=== PATIENT | female | born 1945 | race Caucasian/White ===

== ENCOUNTER 2018-08-29 13:13 | Inpatient (IN) ==
[2018-08-29] MEDS ORDERED: ONDANSETRON INJ 2 MG/ML 2 ML VIAL IV STA ×2 (14:11→15:54)
[2018-08-29] MEDS ORDERED: MoRPHine SULFATE 4 MG/ML 1 ML CARP\\VIAL IV STA ×2 (14:11→15:54)
[2018-08-29 14:50] LABS: Albumin Level 3.8 gm/dl (3.4-5.0); BUN Creatinine Ratio 10.1 (10-20); Calcium 10.3 mg/dl (8.5-10.1); Creatinine Clr Calc Pharmacy 30.3 ml/min; Est GFR (African American) 43.8; Est GFR (Non-African American) 37.8; Potassium 3.2 mmol/L (3.5-5.1)
[2018-08-29 14:53] LABS: Albumin Globulin Ratio 0.9 (0.9-2); Bilirubin,Total 0.7 mg/dl (0.2-1); Globulin 4.4 gm/dl (2.5-4.0); Total Protein 8.2 gm/dl (6.4-8.2)
[2018-08-29 14:58] LABS: Basophils # (auto) 0.03 K/uL (0-0.2); Basophils % (auto) 0.3 %; Eosinophils # (auto) 0.05 K/uL (0-0.5); Eosinophils % (auto) 0.6 %; Hematocrit (blood only) 31.4 % (37-47); Hemoglobin 11.4 g/dL (12.0-16.0); Immature Granulocytes # (auto) 0.03 K/uL (0.00-0.02); Immature Granulocytes % (auto) 0.3 %; Lymphocytes # (auto) 1.26 K/uL (1.2-3.4); Lymphocytes % (auto) 14.5 %; Mean Corpuscular Hgb Conc 36.3 g/dL (32-36); Mean Corpuscular Volume 98.4 fL (80-100); Mean Platelet Volume 9.2 fL (7.4-10.4); Monocytes # (auto) 0.27 K/uL (0.11-0.59); Monocytes % (auto) 3.1 %; Neutrophils # (auto) 7.02 K/uL (1.4-6.5); Neutrophils % (auto) 81.2 %; Platelet Count 225 K/uL (130-400); RDW Coefficient of Variation 13.6 % (11.5-14.5); RDW Standard Deviation 48.3 fL (36.4-46.3); Red Blood Count 3.19 M/uL (4.2-5.4); White Blood Count 8.66 K/uL (4.8-10.8)
--- NOTE | 2018-08-29 14:59 | CT Scan Report ---
CT SCAN OF THE ABDOMEN AND PELVIS WITHOUT IV CONTRAST CLINICAL HISTORY: Generalized abdominal pain. COMPARISON STUDY: Abdominal CT dated 05/09/2015 10/12/2011. TECHNIQUE: CT scan of the abdomen and pelvis is performed from the lung bases to the proximal femora. Images are reviewed in the axial, sagittal, and coronal planes. IV contrast was not administered for this examination as per the referring clinician. Note that the examination is suboptimal without ora l and IV contrast. A dose lowering technique was utilized adhering to the principles of ALARA. CT DOSE: 257.69 mGy.cm FINDINGS: Lung bases: The heart is normal in size and without pericardial effusion. The lung bases are clear no ting bibasilar scarring/atelectasis. The left breast is surgically absent. There is a tiny hiatal her collin. Liver: The unenhanced liver is normal in size, contour, and attenuation. There is no intrahepatic lorna iary ductal dilatation. Gallbladder: There are numerous calcified gallstones, with no CT evidence of acute cholecystitis. Spleen: Normal in size and attenuation. Pancreas: The unenhanced pancreas is atrophic and grossly unremarkable. Adrenal glands: Unremarkable. Kidneys: The unenhanced kidneys are atrophic and without hydronephrosis. There are no renal calculi i dentified. There is no evidence of contour deforming renal mass lesion. Abdominal vasculature: The abdominal aorta is normal in course and caliber noting moderate atheroscle rotic calcification. Bowel: The small bowel loops are distended and fluid-filled measuring up to 3.3 cm in diameter. A tra nsition point is identified in the right lower quadrant involving the distal ileum on image #264. The distal small bowel and colon are decompressed, and the appearance is consistent with a small bowel o bstruction. No pneumatosis intestinalis or portal venous gas is seen. No focally thick walled bowel l oops are identified. There is mild colonic diverticulosis without CT evidence of acute diverticulitis . The appendix is not visualized. Peritoneum: There is no intraperitoneal free air or abdominal ascites. There is a small fat-containin g umbilical hernia. Lymphadenopathy: None. Pelvic viscera: Evaluation of the pelvis is degraded by streak artifact from a right hip arthroplasty . The bladder is decompressed and not well evaluated. The uterus is surgically absent. No adnexal les ion is seen. Skeletal structures: The skeletal structures are osteopenic. There is mild to moderate lumbosacral sp ondylosis and scoliosis. There are numerous sclerotic lesions scattered throughout the visualized bon y structures. [employer] Derrick Operator lesions are seen within the bodies of T10, T11, T12, and L2 as well as t he right anterior ilium and the left ischium. A right hip arthroplasty is in place. IMPRESSION: 1. Findings are consistent with a small bowel obstruction, with a transition point identified involvi ng the distal ileum in the right lower quadrant. This is likely on the basis of adhesions. 2. No intraperitoneal free air is seen. No pneumatosis intestinalis, portal venous gas, or focally th ick walled bowel loops are identified. 3. Cholelithiasis. 4. Numerous indeterminant sclerotic osseous foci are again noted and have been present dating back to 2011. 5. Additional findings as above. Electronically signed by: Eulogio Jennings M.D. 08/29/2018 2:58 PM
[2018-08-29] MEDS ORDERED: SODIUM CHLORIDE 0.9% 500 ML IV ONE (15:33)
[2018-08-29 15:55] LABS: Appearance Urine Turbid (Clear); Bacteria Urine Automated Negative (Negative); Color Urine Dark Yellow; Epithelial Cell Urine Auto >30 /lpf (0-5); Glucose Urine UA Negative (Negative); Ketones Urine 1+ (Negative); Leukocyte Esterase Urine 1+ (Negative); Nitrite Urine Negative (Negative); Protein Urine 2+ (Negative); Specific Gravity Urine 1.027 (1.000-1.030); Urobilinogen Urine Negative (Negative); WBC Urine Automated >30 /hpf (0-5)
[2018-08-29 16:12] LABS: Bilirubin Urine Negative (Negative); Ictotest Urine Negative (Negative)
[2018-08-29 16:21] LABS: Cast Urine Automated >30 /lpf (0-5); Mucus Urine Present (None Prsent)
--- NOTE | 2018-08-29 16:42 | History & Physical Report ---
Date of Service August 29, 2018 Assessment & Plan (1) Small bowel obstruction: Small bowel obstruction seen on CT, likely secondary to adhesions with history of abdominal surgery in the past. Bilious vomiting and significant pain at this point in the ER. She is received 2 doses of morphine with some relief. NG tube to be placed. General surgery consulted. Continue maintenance IV fluids while patient is n.p.o. Dilaudid as needed pain. Zofran/ Phenergan as needed nausea. (2) Acute maxillary sinusitis: She is currently received 6 days of Augmentin and reports no symptoms at this time. We will not pursue further antibiotic therapy. (3) Metastatic breast cancer: Takes twice daily medication for metastatic breast cancer. No IV option is available. Continue to hold p.o. meds until patient is well enough to clamp NG tube and give this to her. (4) C. difficile colitis: History of recurrent C. difficile colitis, patient states diarrhea has been present since starting new chemo medication in April. Will recheck C. difficile at this time in setting of recent antibiotic use. (5) Hypokalemia: Replace in fluids given for maintenance of hydration while n.p.o. recheck in a.m. (6) DVT prophylaxis: Lovenox Full code Disposition-NG tube placed, continue supportive care. Expect patient to return home when medically stable Isabel Wise DO [facility] History of Present Illness Chief Complaint: Abdominal pain Primary Care Provider: Harleen Carlos 73-year-old female with metastatic breast cancer to bone since 2011 presents with severe abdominal pain and vomiting in the last 24 hours. The patient states she last had some toast this morning and she has had several episodes of diarrhea. She notes some loose stools frequently with her cancer medication, Verzenio, which has been started since April. She recently received a shot of Xgeva earlier today at the hematology office. She reports this has not have an adverse effect on her in the past. She has a history of total abdominal hysterectomy in the past. She denies any history of SBO. She denies any blood per rectum. She reports being in the emergency room last week for a sinus infection, of which all symptoms have resolved. Augmentin was taken for approximately 6 days. She is currently in significant pain doubled over and in significant distress in the ER. Family is at bedside. She will be receiving an NG tube. Allergies Allergy/AdvReac Type Severity Reaction Status Date / Time codeine AdvReac Unknown HEADACHE Verified 08/23/18 00:03 Home Medications Home Medications Medication Instructions Recorded Confirmed Type amoxicillin-pot clavulanate 1 tab PO BID #20 tab 08/23/18 08/29/18 Rx [Augmentin] aspirin 81 mg PO DAILY 08/23/18 08/29/18 History hydrocodone-homatropine 5 ml PO Q6H PRN #100 ml 08/23/18 08/29/18 Rx [Hydrocodone Compound] lactobacillus combination no.4 3,000 mmu cells PO DAILY 08/23/18 08/29/18 History [Probiotic] pyridoxine (vitamin B6) [Vitamin 1 tab PO DAILY 08/23/18 08/29/18 History B-6] Calcium 600 + D(3) 1 tab PO BID 08/29/18 08/29/18 History abemaciclib [Verzenio] 200 mg PO BID 08/29/18 08/29/18 History denosumab [Xgeva] 120 mg SUBCUT Q90D 08/29/18 08/29/18 History ondansetron HCl [Zofran] 8 mg PO TID PRN 08/29/18 08/29/18 History trazodone 50 mg PO HS PRN 08/29/18 08/29/18 History Past Med/Surg History Medical History Acute maxillary sinusitis (Acute) Acute sphenoidal sinusitis (Acute) Acute ethmoidal sinusitis (Acute) Metastatic breast cancer (Acute) C. difficile colitis (Chronic) Diverticulitis (Chronic) Abdominal pain (Acute) Ileitis (Acute) Partial small bowel obstruction (Acute) SBO (small bowel obstruction) (Acute) Urinary tract infection (Acute) Breast cancer Surgical History History of hysterectomy (Resolved) History of right hip replacement H/O mastectomy Family History Other No significant family history Social History marital status: Current Living Situation: Family current occupational status: retired Feels Safe at Home: Yes Smoking Status: Never smoker Review of Systems At least ten systems were reviewed and negative except as indicated in HPI above. Physical Exam 2 Vital Signs (Past 24 Hours): Last Vital Signs Temp 36.6 C 08/29/18 13:18 Pulse 76 08/29/18 14:29 Resp 17 08/29/18 14:29 BP 175/79 H 08/29/18 14:29 Pulse Ox 100 08/29/18 14:29 CONSTITUTIONAL: WNWD, vitals as above, in acute distress, doubled over, moaning in pain, guarding and grabbing abdomen EYES: normal conjuctivae, no scleral icterus ENT: Mucous membranes dry RESPIRATORY: clear to auscultation bilaterally, no crackles, rales or wheezes, normal respiratory effort CARDIOVASCULAR: regular rate and rhythm, S1 and 2 heard without murmurs, gallops or rubs, no peripheral edema GASTROINTESTINAL: Hypoactive bowel sounds, soft, nondistended, diffuse tenderness, positive guarding, negative CVA tenderness. MUSCULOSKELETAL: head is normocephalic and atraumatic, strength is generally intact throughout. SKIN: warm and dry NEUROLOGIC: Difficult to completely assess as patient is in pain. CN 2-12 grossly intact, normal cognition, normal speech PSYCHIATRIC: alert cooperative and oriented to person, place and time. Results & Data Laboratory Results Short CBC 08/29/18 Range/Units 14:25 WBC 8.66 (4.8-10.8) K/uL Hgb 11.4 L (12.0-16.0) g/dL Hct 31.4 L (37-47) % Plt Count 225 (130-400) K/uL BMP 08/29/18 14:25 Sodium 139 Potassium 3.2 L Chloride 104 Carbon Dioxide 20 L BUN 14 Creatinine 1.39 H Glucose 131 H Calcium 10.3 H Liver Function 08/29/18 Range/Units 14:25 Total Bilirubin 0.7 (0.2-1) mg/dl AST 22 (15-37) U/L ALT 29 (12-78) U/L Alkaline Phosphatase 65 (45-117) U/L Albumin 3.8 (3.4-5.0) gm/dl Urine 08/29/18 Range/Units 15:30 Urine Color Dark Yellow Urine Appearance Turbid H (Clear) Urine pH 5.0 (4.5-7.5) Ur Specific [place] 1.027 (1.000-1.030) Urine Protein 2+ H (Negative) Urine Glucose (UA) Negative (Negative) Diagnostic Findings CT A/P: FINDINGS: Lung bases: The heart is normal in size and without pericardial effusion. The lung bases are clear noting bibasilar scarring/atelectasis. The left breast is surgically absent. There is a tiny hiatal hernia. Liver: The unenhanced liver is normal in size, contour, and attenuation. There is no intrahepatic biliary ductal dilatation. Gallbladder: There are numerous calcified gallstones, with no CT evidence of acute cholecystitis. Spleen: Normal in size and attenuation. Pancreas: The unenhanced pancreas is atrophic and grossly unremarkable. Adrenal glands: Unremarkable. Kidneys: The unenhanced kidneys are atrophic and without hydronephrosis. There are no renal calculi identified. There is no evidence of contour deforming renal mass lesion. Abdominal vasculature: The abdominal aorta is normal in course and caliber noting moderate atherosclerotic calcification. Bowel: The small bowel loops are distended and fluid-filled measuring up to 3.3 cm in diameter. A transition point is identified in the right lower quadrant involving the distal ileum on image #264. The distal small bowel and colon are decompressed, and the appearance is consistent with a small bowel obstruction. No pneumatosis intestinalis or portal venous gas is seen. No focally thick walled bowel loops are identified. There is mild colonic diverticulosis without CT evidence of acute diverticulitis. The appendix is not visualized. Peritoneum: There is no intraperitoneal free air or abdominal ascites. There is a small fat-containing umbilical hernia. Lymphadenopathy: None. Pelvic viscera: Evaluation of the pelvis is degraded by streak artifact from a right hip arthroplasty. The bladder is decompressed and not well evaluated. The uterus is surgically absent. No adnexal lesion is seen. Skeletal structures: The skeletal structures are osteopenic. There is mild to moderate lumbosacral spondylosis and scoliosis. There are numerous sclerotic lesions scattered throughout the visualized bony structures. Booth Cashier lesions are seen within the bodies of T10, T11, T12, and L2 as well as the right anterior ilium and the left ischium. A right hip arthroplasty is in place. IMPRESSION: 1. Findings are consistent with a small bowel obstruction, with a transition point identified involving the distal ileum in the right lower quadrant. This is likely on the basis of adhesions. 2. No intraperitoneal free air is seen. No pneumatosis intestinalis, portal venous gas, or focally thick walled bowel loops are identified. 3. Cholelithiasis. 4. Numerous indeterminant sclerotic osseous foci are again noted and have been present dating back to 2011. 5. Additional findings as above. Medications Administered Discontinued Medications Sodium Chloride (Nss) 500 mls @ 999 mls/hr IV .Q31M ONE Stop: 08/29/18 16:03 Last Admin: 08/29/18 15:58 Dose: 999 mls/hr Morphine Sulfate (Morphine Sulfate) 4 mg IV NOW STA Stop: 08/29/18 14:12 Last Admin: 08/29/18 14:26 Dose: 4 mg Morphine Sulfate (Morphine Sulfate) 4 mg IV NOW STA Stop: 08/29/18 15:55 Last Admin: 08/29/18 16:03 Dose: 4 mg Ondansetron HCl (Zofran) 4 mg IV NOW STA Stop: 08/29/18 14:12 Last Admin: 08/29/18 14:26 Dose: 4 mg Ondansetron HCl (Zofran) 4 mg IV NOW STA Stop: 08/29/18 15:55 Last Admin: 08/29/18 16:03 Dose: 4 mg Code Status & VTE Plan Code Status Full code as discussed with patient and family on admission VTE Prophylaxis Plan VTE Prophylaxis will be ordered: Yes Critical Care Time Critical Care Time: No _ (1) Acute maxillary sinusitis Recurrence: non-recurrent Qualified Code(s): J01.00 - Acute maxillary sinusitis, unspecified
--- NOTE | 2018-08-29 17:58 | Surgery Consultation ---
Date of Consultation August 29, 2018 Assessment & Plan (1) Small bowel obstruction: pt is a 73 year old female who presents to Er with one day history abdominal pain with nausea and vomiting, CT scan dx SBO, I agree with hospitalist admitted pt to hospital with conservative treatment first, NPO, IV fluid. control pain, NG tube, correct low K, repeat labs in am, D /W pt and her family members possible surgery treatment if conservative treatment fail. they understood, I answered all questions, Thanks, will F/U History of Present Illness History of Present Illness Chief Complaint: Abdominal pain Primary Care Provider: Harleen Gonzalez 73-year-old female with metastatic breast cancer to bone since 2011 presents with severe abdominal pain and vomiting in the last 24 hours. The patient states she last had some toast this morning and she has had several episodes of diarrhea. She notes some loose stools frequently with her cancer medication, Verzenio, which has been started since April. She recently received a shot of Xgeva earlier today at the hematology office. She reports this has not have an adverse effect on her in the past. She has a history of total abdominal hysterectomy in the past. She denies any history of SBO. She denies any blood per rectum. She reports being in the emergency room last week for a sinus infection, of which all symptoms have resolved. Augmentin was taken for approximately 6 days. She is currently in significant pain doubled over and in significant distress in the ER. Family is at bedside. She will be receiving an NG tube. I got a call for consult SBO, I reviewed pt's H/P with pt, I agree with above pt 's history. Allergies Allergy/AdvReac Type Severity Reaction Status Date / Time codeine AdvReac Unknown HEADACHE Verified 08/23/18 00:03 Home Medications Home Medications Medication Instructions Recorded Confirmed Type amoxicillin-pot clavulanate 1 tab PO BID #20 tab 08/23/18 08/29/18 Rx [Augmentin] aspirin 81 mg PO DAILY 08/23/18 08/29/18 History hydrocodone-homatropine 5 ml PO Q6H PRN #100 ml 08/23/18 08/29/18 Rx [Hydrocodone Compound] lactobacillus combination no.4 3,000 mmu cells PO DAILY 08/23/18 08/29/18 History [Probiotic] pyridoxine (vitamin B6) [Vitamin 1 tab PO DAILY 08/23/18 08/29/18 History B-6] Calcium 600 + D(3) 1 tab PO BID 08/29/18 08/29/18 History abemaciclib [Verzenio] 200 mg PO BID 08/29/18 08/29/18 History denosumab [Xgeva] 120 mg SUBCUT Q90D 08/29/18 08/29/18 History ondansetron HCl [Zofran] 8 mg PO TID PRN 08/29/18 08/29/18 History trazodone 50 mg PO HS PRN 08/29/18 08/29/18 History Patient History Medical History Acute maxillary sinusitis (Acute) Acute sphenoidal sinusitis (Acute) Acute ethmoidal sinusitis (Acute) Metastatic breast cancer (Acute) C. difficile colitis (Chronic) Diverticulitis (Chronic) Abdominal pain (Acute) Ileitis (Acute) Partial small bowel obstruction (Acute) SBO (small bowel obstruction) (Acute) Urinary tract infection (Acute) Breast cancer Surgical History History of hysterectomy (Resolved) History of right hip replacement H/O mastectomy Family History Other No significant family history Social History marital status: Current Living Situation: Family current occupational status: retired Feels Safe at Home: Yes Smoking Status: Never smoker Review of Systems Constitutional: as per Subjective / HPI Ear, Nose, Mouth, Throat: as per Subjective / HPI Respiratory: as per Subjective / HPI Cardiovascular: as per Subjective / HPI Gastrointestinal: + nausea and + vomiting Genitourinary (Female): as per Subjective / HPI metastatic breast cancer to bone, C-diff colitis Musculoskeletal: as per Subjective / HPI Neurologic: as per Subjective / HPI Psychiatric: as per Subjective / HPI Endocrine: as per Subjective / HPI Hematologic / Lymphatic: as per Subjective / HPI Physical Exam 2 Vital Signs (Past 24 Hours): Last Vital Signs Temp 36.6 C 08/29/18 13:18 Pulse 83 08/29/18 16:00 Resp 20 01/02/19 16:00 BP 148/67 H 08/29/18 16:00 Pulse Ox 95 08/29/18 16:00 Constitutional: WD/WN, vitals as above + ill appearing, + thin and + cachectic Neck: trachea midline, no thyromegaly Respiratory: normal respiratory effort, lungs clear to auscultation Cardiovascular: RRR, no murmur, no edema Rate/Rhythm: regular rate and regular rhythm Gastrointestinal (Abdomen): Inspection/Auscultation: + abdominal surgical scar Percussion/Palpation: + abdomen tender and abdomen soft slightly distend, some tenderness jennifer-umbilical area, no rebound pain, BS + Musculoskeletal: Spine: + lumbar spinal tenderness Extremities: extremities normal to inspection Neurologic: awake Psychiatric: Orientation: alert and oriented x 3 Results & Data Laboratory Results Abnormal lab results 08/29/18 08/29/18 08/29/18 Range/Units 14:25 14:25 15:30 RBC 3.19 L (4.2-5.4) M/uL Hgb 11.4 L (12.0-16.0) g/dL Hct 31.4 L (37-47) % MCH 35.7 H (25-34) pg MCHC 36.3 H (32-36) g/dL RDW Std Deviation 48.3 H (36.4-46.3) fL Immature Gran # (Auto) 0.03 H (0.00-0.02) K/uL Neut # (Auto) 7.02 H (1.4-6.5) K/uL Potassium 3.2 L (3.5-5.1) mmol/L Carbon Dioxide 20 L (21-32) mmol/L Anion Gap 14.0 H (3-11) Creatinine 1.39 H (0.6-1.2) mg/dl Glucose 131 H (70-99) mg/dl Calcium 10.3 H (8.5-10.1) mg/dl Globulin 4.4 H (2.5-4.0) gm/dl Urine Appearance Turbid H (Clear) Urine Protein 2+ H (Negative) Urine Ketones 1+ H (Negative) Urine Blood Trace H (Negative) Ur Leukocyte Esterase 1+ H (Negative) Urine WBC (Auto) >30 H (0-5) /hpf U Hyaline Cast (Auto) >30 H (0-5) /lpf U Epithel Cells (Auto) >30 H (0-5) /lpf Urine Mucus Present H (None Prsent) Diagnostic Findings CT SCAN OF THE ABDOMEN AND PELVIS WITHOUT IV CONTRAST CLINICAL HISTORY: Generalized abdominal pain. COMPARISON STUDY: Abdominal CT dated 05/09/2015 10/12/2011. TECHNIQUE: CT scan of the abdomen and pelvis is performed from the lung bases to the proximal femora. Images are reviewed in the axial, sagittal, and coronal planes. IV contrast was not administered for this examination as per the referring clinician. Note that the examination is suboptimal without oral and IV contrast. A dose lowering technique was utilized adhering to the principles of ALARA. CT DOSE: 257.69 mGy.cm FINDINGS: Lung bases: The heart is normal in size and without pericardial effusion. The lung bases are clear noting bibasilar scarring/atelectasis. The left breast is surgically absent. There is a tiny hiatal hernia. Liver: The unenhanced liver is normal in size, contour, and attenuation. There is no intrahepatic biliary ductal dilatation. Gallbladder: There are numerous calcified gallstones, with no CT evidence of acute cholecystitis. Spleen: Normal in size and attenuation. Pancreas: The unenhanced pancreas is atrophic and grossly unremarkable. Adrenal glands: Unremarkable. Kidneys: The unenhanced kidneys are atrophic and without hydronephrosis. There are no renal calculi identified. There is no evidence of contour deforming renal mass lesion. Abdominal vasculature: The abdominal aorta is normal in course and caliber noting moderate atherosclerotic calcification. Bowel: The small bowel loops are distended and fluid-filled measuring up to 3.3 cm in diameter. A transition point is identified in the right lower quadrant involving the distal ileum on image #264. The distal small bowel and colon are decompressed, and the appearance is consistent with a small bowel obstruction. No pneumatosis intestinalis or portal venous gas is seen. No focally thick walled bowel loops are identified. There is mild colonic diverticulosis without CT evidence of acute diverticulitis. The appendix is not visualized. Peritoneum: There is no intraperitoneal free air or abdominal ascites. There is a small fat-containing umbilical hernia. Lymphadenopathy: None. Pelvic viscera: Evaluation of the pelvis is degraded by streak artifact from a right hip arthroplasty. The bladder is decompressed and not well evaluated. The uterus is surgically absent. No adnexal lesion is seen. Skeletal structures: The skeletal structures are osteopenic. There is mild to moderate lumbosacral spondylosis and scoliosis. There are numerous sclerotic lesions scattered throughout the visualized bony structures. Tele[employer] Field Technician lesions are seen within the bodies of T10, T11, T12, and L2 as well as the right anterior ilium and the left ischium. A right hip arthroplasty is in place. IMPRESSION: 1. Findings are consistent with a small bowel obstruction, with a transition point identified involving the distal ileum in the right lower quadrant. This is likely on the basis of adhesions. 2. No intraperitoneal free air is seen. No pneumatosis intestinalis, portal venous gas, or focally thick walled bowel loops are identified. 3. Cholelithiasis. 4. Numerous indeterminant sclerotic osseous foci are again noted and have been present dating back to 2011. 5. Additional findings as above.
--- NOTE | 2018-08-29 18:10 | XRay Report ---
KUB HISTORY: Status post placement of enteric tube NG tube placement COMPARISON: CT abdomen and pelvis . FINDINGS: Mild gaseous distention of the stomach. Enteric tube has been placed with distal tip projecting over the abdominal left upper quadrant within the region of the mid gastric lumen. Gas-filled loops of bow el noted within the right lower quadrant of the abdomen. No pneumatosis or pneumoperitoneum. No defin ite urolith or acute fracture. Cholelithiasis. Levoscoliosis of the lumbar spine. IMPRESSION: Status post placement of an enteric tube, distal tip terminating in the region of the mid gastric lum en. Electronically signed by: John Tinoco M.D. 08/29/2018 6:09 PM
[2018-08-29] MEDS ORDERED: PROMETHAZINE HCL 25 MG SUPP PR PRN (19:28)
[2018-08-29] MEDS ORDERED: ONDANSETRON INJ 2 MG/ML 2 ML VIAL IV PRN (19:28)
[2018-08-29] MEDS ORDERED: HYDROmorphone INJ 0.5 MG/0.5 ML SYR IV PRN (19:28)
[2018-08-29] MEDS ORDERED: ACETAMINOPHEN 1000 MG/100 ML IV IV SCH (20:00)
--- NOTE | 2018-08-29 20:14 | Emergency Department Note ---
Entered by Brittni Powers acting as a scribe for Kailash Murray MD History of Present Illness General Chief complaint: Abdominal Pain Stated complaint: SEVERE ABD PAIN, VOM, HX CDIFF Source: patient History of Present Illness Onset (ago): day(s) (today) Location: abdomen Severity: similar to prior episodes (of C. Diff) Pain Consistency: + other (worsening) Maximum Pain Intensity: 9 Quality: + sharp Associated symptoms: + denies other symptoms (hematochezia, urinary symptoms) and + nausea/vomiting (vomiting); no chest pain and no fever/chills (fever) The patient is a 73 year old female who presents to the Emergency Room with complaints of worsening abdominal pain starting today. The patient states that the pain is sharp and all over her abdomen. She notes that it feels similar to her Previous episode of C. Diff. She notes that she normally had diarrhea with her chemotherapy, but recently it has been worse. She notes that she had recently been on Augmentin for a sinus infection and takes her chemotherapy orally daily. She notes that she has been vomiting. The patient notes that she has breast cancer that his metastasized to the bone. The patient denies blood in her stool, fever, chest pain, and urinary symptoms. Home Medications Home Medications Medication Instructions Recorded Confirmed Type amoxicillin-pot clavulanate 1 tab PO BID #20 tab 08/23/18 08/29/18 Rx [Augmentin] aspirin 81 mg PO DAILY 08/23/18 08/29/18 History hydrocodone-homatropine 5 ml PO Q6H PRN #100 ml 08/23/18 08/29/18 Rx [Hydrocodone Compound] lactobacillus combination no.4 3,000 mmu cells PO DAILY 08/23/18 08/29/18 History [Probiotic] pyridoxine (vitamin B6) [Vitamin 1 tab PO DAILY 08/23/18 08/29/18 History B-6] Calcium 600 + D(3) 1 tab PO BID 08/29/18 08/29/18 History abemaciclib [Verzenio] 200 mg PO BID 08/29/18 08/29/18 History denosumab [Xgeva] 120 mg SUBCUT Q90D 08/29/18 08/29/18 History ondansetron HCl [Zofran] 8 mg PO TID PRN 08/29/18 08/29/18 History trazodone 50 mg PO HS PRN 08/29/18 08/29/18 History Allergies Allergy/AdvReac Type Severity Reaction Status Date / Time codeine AdvReac Unknown HEADACHE Verified 08/23/18 00:03 Past Med/Surg History Medical History Small bowel obstruction (Acute) Acute maxillary sinusitis (Acute) Acute sphenoidal sinusitis (Acute) Acute ethmoidal sinusitis (Acute) Metastatic breast cancer (Acute) C. difficile colitis (Chronic) Diverticulitis (Chronic) Abdominal pain (Acute) Ileitis (Acute) Partial small bowel obstruction (Acute) SBO (small bowel obstruction) (Acute) Urinary tract infection (Acute) Breast cancer Surgical History History of hysterectomy (Resolved) History of right hip replacement H/O mastectomy Family History Other No significant family history Social History marital status: Current Living Situation: Spouse current occupational status: retired Feels Safe at Home: Yes Safety Concerns: Feels Safe At This Time Smoking Status: Never smoker Do You Dip or Chew Tobacco: No Second Hand Exposure: No Hx Alcohol Use: No Hx Substance Use: No Beliefs That Will Affect Care: None Preferred Language: Bhutanese Communication Ability: Effective Rfid Specialist Required: No Review of Systems See HPI for pertinent positives & negatives. and A total of 10 systems reviewed and were otherwise negative Physical Exam Vital Signs Vital Signs - 24 hr 08/29/18 13:18 08/29/18 14:27 08/29/18 14:29 Temperature 36.6 C Temperature Source Oral Sepsis Recent Fever Within 48 Hours No Sepsis Action Taken by Nursing No Action Required Pulse Rate 95 H Pulse Rate [Finger] 76 Pulse Rhythm Regular Respiratory Rate 18 17 Respiratory Effort / Characteristics Non-Labored Respiratory Depth Normal Respiratory Pattern Regular Blood Pressure 159/75 H Blood Pressure [Right Arm] 175/79 H Blood Pressure Mean 103 Blood Pressure Mean [Right Arm] 111 Blood Pressure Position Sitting Blood Pressure Position [Right Arm] Sitting Pulse Oximetry 100 100 100 Oxygen Delivery Method Room Air Room Air Room Air 08/29/18 16:00 08/29/18 18:08 08/29/18 18:45 Temperature Temperature Source Sepsis Recent Fever Within 48 Hours Sepsis Action Taken by Nursing Pulse Rate Pulse Rate [Finger] 83 80 Pulse Rhythm Respiratory Rate 20 20 Respiratory Effort / Characteristics Non-Labored Spontaneous Respiratory Depth Normal Respiratory Pattern Regular Blood Pressure Blood Pressure [Right Arm] 148/67 H 167/78 H Blood Pressure Mean Blood Pressure Mean [Right Arm] 94 107 Blood Pressure Position Blood Pressure Position [Right Arm] Pulse Oximetry 95 96 Oxygen Delivery Method Room Air Room Air Room Air 08/29/18 18:56 08/29/18 19:30 Temperature 36.8 C 36.9 C Temperature Source Oral Oral Sepsis Recent Fever Within 48 Hours Sepsis Action Taken by Nursing Pulse Rate Pulse Rate [Finger] 89 79 Pulse Rhythm Respiratory Rate 18 18 Respiratory Effort / Characteristics Non-Labored Spontaneous Non-Labored Spontaneous Respiratory Depth Normal Normal Respiratory Pattern Regular Regular Blood Pressure Blood Pressure [Right Arm] 180/76 H 159/76 H Blood Pressure Mean Blood Pressure Mean [Right Arm] 110 103 Blood Pressure Position Blood Pressure Position [Right Arm] Pulse Oximetry 94 94 Oxygen Delivery Method Room Air Room Air Constitutional: Vital signs reviewed. Eyes: Pupils are equal round reactive to light. Conjunctiva are noninjected. ENT: Pharynx is clear without erythema or exudate. Mucous membranes are dry. Neck supple without meningeal signs. Respiratory: Clear to auscultation bilaterally. Breath sounds are equal bilaterally. Cardiovascular: Regular rate and rhythm. No rubs or gallops. GI: Soft, nondistended and diffuse abdominal tenderness with slight rebound. Bowel sounds are present. Musculoskeletal: No peripheral edema. No lower extremity tenderness. Integumentary: No cyanosis. Neurological: The patient is awake and alert. No focal deficits. Psychiatric: Normal affect. Course 1407: Past medical records reviewed. The patient was evaluated in room C6, and a complete history and physical examination were performed. 1523: I paged General Surgery at this time. 1524: [facility]. 1525: I reevaluated the patient and updated her and her family at this time on her test results. I discussed the treatment plan with them. They verbally agreed and understood. 1530: I discussed the patient's case with Dr. Chowdhury- General Surgeon. He would like the patient admitted to medicine and he will consult from there. 1532: I reviewed the patient's case with YIMI Flowers Hospitalist. She will evaluate the patient for further management. 1554: Nursing staff called and the patient is requesting more pain and nausea medications. Consultations Consultation #1: I discussed the patient's case with Dr. Chowdhury- General Surgeon. He would like the patient admitted to medicine and he will consult from there. Time: 15:30 Consultation #2: I reviewed the patient's case with YIMI Flowers Hospitalist. She will evaluate the patient for further management. Time: 15:32 Administered Medications Discontinued Medications Sodium Chloride (Nss) 500 mls @ 999 mls/hr IV .Q31M ONE Stop: 08/29/18 16:03 Last Infusion: 08/29/18 18:29 Dose: 0 mls/hr Admin: 08/29/18 15:58 Dose: 999 mls/hr Morphine Sulfate (Morphine Sulfate) 4 mg IV NOW STA Stop: 08/29/18 14:12 Last Admin: 08/29/18 14:26 Dose: 4 mg Morphine Sulfate (Morphine Sulfate) 4 mg IV NOW STA Stop: 08/29/18 15:55 Last Admin: 08/29/18 16:03 Dose: 4 mg Ondansetron HCl (Zofran) 4 mg IV NOW STA Stop: 08/29/18 14:12 Last Admin: 08/29/18 14:26 Dose: 4 mg Ondansetron HCl (Zofran) 4 mg IV NOW STA Stop: 08/29/18 15:55 Last Admin: 08/29/18 16:03 Dose: 4 mg Medical Decision Making Differential Diagnosis Differential diagnoses include C. Diff infection, colitis, medication side effect, pancreatitis, bowel perforation, kidney stone. Medical Records Attestation: I reviewed the patient's medical records. Home Medications Current Medication List: was personally reviewed by me Laboratory Data Attestation: I reviewed the patient's lab results. Result diagrams: 08/29/18 14:25 08/29/18 14:25 Lab Results 08/29/18 08/29/18 08/29/18 Range/Units 14:25 14:25 15:30 WBC 8.66 (4.8-10.8) K/uL RBC 3.19 L (4.2-5.4) M/uL Hgb 11.4 L (12.0-16.0) g/dL Hct 31.4 L (37-47) % MCV 98.4 (80-100) fL MCH 35.7 H (25-34) pg MCHC 36.3 H (32-36) g/dL RDW Std Deviation 48.3 H (36.4-46.3) fL RDW Coeff of Randell 13.6 (11.5-14.5) % Plt Count 225 (130-400) K/uL MPV 9.2 (7.4-10.4) fL Immature Gran % (Auto) 0.3 % Neut % (Auto) 81.2 % Lymph % (Auto) 14.5 % [place] % (Auto) 3.1 % Eos % (Auto) 0.6 % Baso % (Auto) 0.3 % Immature Gran # (Auto) 0.03 H (0.00-0.02) K/uL Neut # (Auto) 7.02 H (1.4-6.5) K/uL Lymph # (Auto) 1.26 (1.2-3.4) K/uL [place] # (Auto) 0.27 (0.11-0.59) K/uL Eos # (Auto) 0.05 (0-0.5) K/uL Baso # (Auto) 0.03 (0-0.2) K/uL Sodium 139 (136-145) mmol/L Potassium 3.2 L (3.5-5.1) mmol/L Chloride 104 (98-107) mmol/L Carbon Dioxide 20 L (21-32) mmol/L Anion Gap 14.0 H (3-11) BUN 14 (7-18) mg/dl Creatinine 1.39 H (0.6-1.2) mg/dl Est Cr Clr Drug Dosing 30.3 ml/min Est GFR ( Amer) 43.8 Est GFR (Non-Af Amer) 37.8 BUN/Creatinine Ratio 10.1 (10-20) Glucose 131 H (70-99) mg/dl Calcium 10.3 H (8.5-10.1) mg/dl Total Bilirubin 0.7 (0.2-1) mg/dl AST 22 (15-37) U/L ALT 29 (12-78) U/L Alkaline Phosphatase 65 (45-117) U/L Total Protein 8.2 (6.4-8.2) gm/dl Albumin 3.8 (3.4-5.0) gm/dl Globulin 4.4 H (2.5-4.0) gm/dl Albumin/Globulin Ratio 0.9 (0.9-2) Lipase 74 (73-393) U/L Urine Color Dark Yellow Urine Appearance Turbid H (Clear) Urine pH 5.0 (4.5-7.5) Ur Specific [place] 1.027 (1.000-1.030) Urine Protein 2+ H (Negative) Urine Glucose (UA) Negative (Negative) Urine Ketones 1+ H (Negative) Urine Blood Trace H (Negative) Urine Nitrite Negative (Negative) Urine Bilirubin Negative (Negative) Urine Urobilinogen Negative (Negative) Ur Leukocyte Esterase 1+ H (Negative) Urine WBC (Auto) >30 H (0-5) /hpf Urine RBC (Auto) 0-4 (0-4) /hpf U Hyaline Cast (Auto) >30 H (0-5) /lpf U Epithel Cells (Auto) >30 H (0-5) /lpf Urine Bacteria (Auto) Negative (Negative) Ur Renal Epithelial Cell Not Reportable Urine Crystals [place] (None Prsent) Urine Mucus Present H (None Prsent) Imaging Data Radiologist's Impression: Radiology results as stated below per my review and the radiologist's interpretation: CT SCAN OF THE ABDOMEN AND PELVIS WITHOUT IV CONTRAST CLINICAL HISTORY: Generalized abdominal pain. COMPARISON STUDY: Abdominal CT dated 05/09/2015 10/12/2011. TECHNIQUE: CT scan of the abdomen and pelvis is performed from the lung bases to the proximal femora. Images are reviewed in the axial, sagittal, and coronal planes. IV contrast was not administered for this examination as per the referring clinician. Note that the examination is suboptimal without oral and IV contrast. A dose lowering technique was utilized adhering to the principles of ALARA. CT DOSE: 257.69 mGy.cm FINDINGS: Lung bases: The heart is normal in size and without pericardial effusion. The lung bases are clear noting bibasilar scarring/atelectasis. The left breast is surgically absent. There is a tiny hiatal hernia. Liver: The unenhanced liver is normal in size, contour, and attenuation. There is no intrahepatic biliary ductal dilatation. Gallbladder: There are numerous calcified gallstones, with no CT evidence of acute cholecystitis. Spleen: Normal in size and attenuation. Pancreas: The unenhanced pancreas is atrophic and grossly unremarkable. Adrenal glands: Unremarkable. Kidneys: The unenhanced kidneys are atrophic and without hydronephrosis. There are no renal calculi identified. There is no evidence of contour deforming renal mass lesion. Abdominal vasculature: The abdominal aorta is normal in course and caliber noting moderate atherosclerotic calcification. Bowel: The small bowel loops are distended and fluid-filled measuring up to 3.3 cm in diameter. A transition point is identified in the right lower quadrant involving the distal ileum on image #264. The distal small bowel and colon are decompressed, and the appearance is consistent with a small bowel obstruction. No pneumatosis intestinalis or portal venous gas is seen. No focally thick walled bowel loops are identified. There is mild colonic diverticulosis without CT evidence of acute diverticulitis. The appendix is not visualized. Peritoneum: There is no intraperitoneal free air or abdominal ascites. There is a small fat-containing umbilical hernia. Lymphadenopathy: None. Pelvic viscera: Evaluation of the pelvis is degraded by streak artifact from a right hip arthroplasty. The bladder is decompressed and not well evaluated. The uterus is surgically absent. No adnexal lesion is seen. Skeletal structures: The skeletal structures are osteopenic. There is mild to moderate lumbosacral spondylosis and scoliosis. There are numerous sclerotic lesions scattered throughout the visualized bony structures. Process Chemist lesions are seen within the bodies of T10, T11, T12, and L2 as well as the right anterior ilium and the left ischium. A right hip arthroplasty is in place. IMPRESSION: 1. Findings are consistent with a small bowel obstruction, with a transition point identified involving the distal ileum in the right lower quadrant. This is likely on the basis of adhesions. 2. No intraperitoneal free air is seen. No pneumatosis intestinalis, portal venous gas, or focally thick walled bowel loops are identified. 3. Cholelithiasis. 4. Numerous indeterminant sclerotic osseous foci are again noted and have been present dating back to 2011. 5. Additional findings as above. Electronically signed by: Eulogio Jennings M.D. 08/29/2018 2:58 PM ECG Data Attestation: I personally reviewed and interpreted this ECG as follows: Indication: abdominal pain Rate (beats per minute): 76 Rhythm: normal sinus Findings: + ST depression (lowering ST segments in V4-V6); no ST elevation Comparison ECG Date: from (08/22/2018) Change: no significant change Blood Pressure Blood Pressure Findings: Elevated blood pressure Blood Pressure Disposition: Referred to patients primary care provider BRANDON Narrative I did perform a limited focused review of portions of the patient's old chart on the electronic medical record. The patient was here on the 22 of August and diagnosed with sinusitis. She was discharged with Augmentin for 10 days. I did evaluate the patient as noted above. Patient is presenting with abdominal pain with diffuse tenderness with some slight rebound on exam. IV access was established. The patient was placed on a continuous cardiac specialist. I did treat her with IV morphine and Zofran. She was also given normal saline. I did order and personally review the patient's 12-lead EKG as described above. She did have some nonspecific ST changes which are not new. I did order and review the patient's blood work as noted in the electronic medical record. She is anemic with hypokalemia. Her white count is not elevated. I did order a stat CT of the abdomen and pelvis. I did review the images myself as well as the radiology report as described above. She does have a small bowel obstruction with a transition point in the right lower quadrant. I did discuss the test results with the patient's family. She was given additional pain medication with IV morphine and Zofran. An NG tube was placed. I did discuss the case with the surgeon on-call who will assess the patient. I did also speak to the hospitalist and case management social worker. I did order a stool test for C. difficile as well. Impression & Plan Small bowel obstruction, Hypokalemia Discharge Plan Visit Data *Final* Discharge Date/Time: 08/29/18 18:10 Chief Complaint: Abdominal Pain Stated Complaint: SEVERE ABD PAIN, VOM, HX CDIFF ED Provider: Kailash Murray Discharge Problem: Small bowel obstruction, Hypokalemia Patient Disposition: Admitted As Inpatient Discharge Instructions Interventions: ED Discharge Assessment Last Done: 08/29/18 18:10 The scribe's documentation has been prepared under my direction and personally reviewed by me in its entirety. I confirm that the note above accurately reflects all work, treatment, procedures, and medical decision making performed by me.
[2018-08-29] MEDS: ACETAMINOPHEN 1,000 MG/100 ML VIAL IV SCH (20:52)
[2018-08-29] MEDS: POTASSIUM CHLORIDE 40 MEQ in D5W AND NSS 1,000 ML IV SCH (20:53)
[2018-08-30] MEDS: ACETAMINOPHEN 1,000 MG/100 ML VIAL IV SCH ×3 (04:11→20:14)
[2018-08-30] MEDS: POTASSIUM CHLORIDE 40 MEQ in D5W AND NSS 1,000 ML IV SCH ×2 (05:36→16:55)
[2018-08-30 07:10] LABS: Hematocrit (blood only) 28.7 % (37-47); Hemoglobin 9.8 g/dL (12.0-16.0); Mean Corpuscular Hgb Conc 34.1 g/dL (32-36); Mean Corpuscular Volume 101.1 fL (80-100); Mean Platelet Volume 9.4 fL (7.4-10.4); Platelet Count 176 K/uL (130-400); RDW Coefficient of Variation 14.2 % (11.5-14.5); RDW Standard Deviation 51.5 fL (36.4-46.3); Red Blood Count 2.84 M/uL (4.2-5.4); White Blood Count 6.97 K/uL (4.8-10.8)
[2018-08-30 07:24] LABS: Partial Thromboplastin Ratio 0.9; Partial Thromboplastin Time 22.8 Seconds (21.0-31.0); Prothrombin Time 10.5 Seconds (9.0-12.0)
[2018-08-30 07:43] LABS: BUN Creatinine Ratio 13.4 (10-20); Calcium 8.6 mg/dl (8.5-10.1); Creatinine Clr Calc Pharmacy 41.9 ml/min; Est GFR (African American) 68.5; Est GFR (Non-African American) 59.1; Potassium 3.9 mmol/L (3.5-5.1)
[2018-08-30] MEDS: ENOXAPARIN INJ 40 MG/0.4 ML SYR SQ SCH (09:46)
[2018-08-30] MEDS ORDERED: CHLORASEPTIC 1.4% SOLN 180 ML BTL MT PRN (11:20)
[2018-08-30] MEDS ORDERED: COUGH DROP (SUGAR FREE) LOZ 24 LOZ/1 BOX BUCCAL PRN (11:41)
--- NOTE | 2018-08-30 12:59 | Surgery Progress Note ---
Date of Service August 30, 2018 Assessment & Plan (1) Small bowel obstruction: resolving + bowel function this morning afebrile, no leukocytosis NGT with minimal output (260 cc since placement), dislodged on examination abdomen is soft, nontender Plan: Discontinue NGT Cepacol lozenges and Chloraseptic throat spray prn sore throat keep NPO for now encouraged ambulation and OOB to chair Continue iV fluids Will evaluate later today for possible diet advancement Dr. Chowdhury has seen and examined pt, agrees with above Subjective "sore throat" no abdominal pain no nausea or vomiting not much sleep last night, NGT uncomfortable soft formed bowel movement this morning, decent size Physical Exam 2 Vital Signs (Past 24 Hours): Last Vital Signs Temp 36.6 C 08/30/18 06:52 Pulse 76 08/30/18 07:44 Resp 16 08/30/18 06:52 BP 172/77 H 08/30/18 07:44 Pulse Ox 97 08/30/18 06:52 Constitutional: WD/WN, vitals as above no acute distress ENMT: Nose: + foreign body in naris (NGT present, NGT has slipped, loose at nose) Respiratory: normal respiratory effort; no respiratory distress, no labored breathing, no retractions and does not use accessory muscles Gastrointestinal (Abdomen): Inspection/Auscultation: abdomen normal to inspection; abdomen not distended Percussion/Palpation: abdomen soft; abdomen nontender, no guarding and abdomen not rigid Skin: no rashes, warm and dry Psychiatric: A+Ox3, euthymic affect Results & Data Laboratory Results 08/30/18 08/30/18 08/30/18 Range/Units 08:37 06:38 06:38 WBC (4.8-10.8) K/uL RBC (4.2-5.4) M/uL Hgb (12.0-16.0) g/dL Hct (37-47) % MCV (80-100) fL MCH (25-34) pg MCHC (32-36) g/dL RDW Std Deviation (36.4-46.3) fL RDW Coeff of Randell (11.5-14.5) % Plt Count (130-400) K/uL MPV (7.4-10.4) fL Immature Gran % (Auto) % Neut % (Auto) % Lymph % (Auto) % [place] % (Auto) % Eos % (Auto) % Baso % (Auto) % Immature Gran # (Auto) (0.00-0.02) K/uL Neut # (Auto) (1.4-6.5) K/uL Lymph # (Auto) (1.2-3.4) K/uL [place] # (Auto) (0.11-0.59) K/uL Eos # (Auto) (0-0.5) K/uL Baso # (Auto) (0-0.2) K/uL PT 10.5 (9.0-12.0) Seconds INR 1.0 (0.9-1.1) APTT 22.8 (21.0-31.0) Seconds PTT Ratio 0.9 Sodium 141 (136-145) mmol/L Potassium 3.9 D (3.5-5.1) mmol/L Chloride 110 H (98-107) mmol/L Carbon Dioxide 24 (21-32) mmol/L Anion Gap 7.0 (3-11) BUN 13 (7-18) mg/dl Creatinine 0.96 D (0.6-1.2) mg/dl Est Cr Clr Drug Dosing 41.9 ml/min Est GFR ( Amer) 68.5 Est GFR (Non-Af Amer) 59.1 BUN/Creatinine Ratio 13.4 (10-20) Glucose 112 H (70-99) mg/dl Calcium 8.6 D (8.5-10.1) mg/dl Magnesium 2.0 (1.8-2.4) mg/dl Total Bilirubin (0.2-1) mg/dl AST (15-37) U/L ALT (12-78) U/L Alkaline Phosphatase (45-117) U/L Total Protein (6.4-8.2) gm/dl Albumin (3.4-5.0) gm/dl Globulin (2.5-4.0) gm/dl Albumin/Globulin Ratio (0.9-2) Lipase (73-393) U/L Urine Color Urine Appearance (Clear) Urine pH (4.5-7.5) Ur Specific [place] (1.000-1.030) Urine Protein (Negative) Urine Glucose (UA) (Negative) Urine Ketones (Negative) Urine Blood (Negative) Urine Nitrite (Negative) Urine Bilirubin (Negative) Urine Urobilinogen (Negative) Ur Leukocyte Esterase (Negative) Urine WBC (Auto) (0-5) /hpf Urine RBC (Auto) (0-4) /hpf U Hyaline Cast (Auto) (0-5) /lpf U Epithel Cells (Auto) (0-5) /lpf Urine Bacteria (Auto) (Negative) Ur Renal Epithelial Cell Urine Crystals (None Prsent) Urine Mucus (None Prsent) Stl C. diff Tox B Gene Neg C.diff Toxin B (Neg) 08/30/18 08/29/18 08/29/18 Range/Units 06:38 15:30 14:25 WBC 6.97 8.66 (4.8-10.8) K/uL RBC 2.84 L 3.19 L (4.2-5.4) M/uL Hgb 9.8 L 11.4 L (12.0-16.0) g/dL Hct 28.7 L 31.4 L (37-47) % MCV 101.1 H 98.4 (80-100) fL MCH 34.5 H 35.7 H (25-34) pg MCHC 34.1 36.3 H (32-36) g/dL RDW Std Deviation 51.5 H 48.3 H (36.4-46.3) fL RDW Coeff of Randell 14.2 13.6 (11.5-14.5) % Plt Count 176 225 (130-400) K/uL MPV 9.4 9.2 (7.4-10.4) fL Immature Gran % (Auto) 0.3 % Neut % (Auto) 81.2 % Lymph % (Auto) 14.5 % [place] % (Auto) 3.1 % Eos % (Auto) 0.6 % Baso % (Auto) 0.3 % Immature Gran # (Auto) 0.03 H (0.00-0.02) K/uL Neut # (Auto) 7.02 H (1.4-6.5) K/uL Lymph # (Auto) 1.26 (1.2-3.4) K/uL [place] # (Auto) 0.27 (0.11-0.59) K/uL Eos # (Auto) 0.05 (0-0.5) K/uL Baso # (Auto) 0.03 (0-0.2) K/uL PT (9.0-12.0) Seconds INR (0.9-1.1) APTT (21.0-31.0) Seconds PTT Ratio Sodium (136-145) mmol/L Potassium (3.5-5.1) mmol/L Chloride (98-107) mmol/L Carbon Dioxide (21-32) mmol/L Anion Gap (3-11) BUN (7-18) mg/dl Creatinine (0.6-1.2) mg/dl Est Cr Clr Drug Dosing ml/min Est GFR ( Amer) Est GFR (Non-Af Amer) BUN/Creatinine Ratio (10-20) Glucose (70-99) mg/dl Calcium (8.5-10.1) mg/dl Magnesium (1.8-2.4) mg/dl Total Bilirubin (0.2-1) mg/dl AST (15-37) U/L ALT (12-78) U/L Alkaline Phosphatase (45-117) U/L Total Protein (6.4-8.2) gm/dl Albumin (3.4-5.0) gm/dl Globulin (2.5-4.0) gm/dl Albumin/Globulin Ratio (0.9-2) Lipase (73-393) U/L Urine Color Dark Yellow Urine Appearance Turbid H (Clear) Urine pH 5.0 (4.5-7.5) Ur Specific [place] 1.027 (1.000-1.030) Urine Protein 2+ H (Negative) Urine Glucose (UA) Negative (Negative) Urine Ketones 1+ H (Negative) Urine Blood Trace H (Negative) Urine Nitrite Negative (Negative) Urine Bilirubin Negative (Negative) Urine Urobilinogen Negative (Negative) Ur Leukocyte Esterase 1+ H (Negative) Urine WBC (Auto) >30 H (0-5) /hpf Urine RBC (Auto) 0-4 (0-4) /hpf U Hyaline Cast (Auto) >30 H (0-5) /lpf U Epithel Cells (Auto) >30 H (0-5) /lpf Urine Bacteria (Auto) Negative (Negative) Ur Renal Epithelial Cell Not Reportable Urine Crystals [place] (None Prsent) Urine Mucus Present H (None Prsent) Stl C. diff Tox B Gene (Neg) 08/29/18 Range/Units 14:25 WBC (4.8-10.8) K/uL RBC (4.2-5.4) M/uL Hgb (12.0-16.0) g/dL Hct (37-47) % MCV (80-100) fL MCH (25-34) pg MCHC (32-36) g/dL RDW Std Deviation (36.4-46.3) fL RDW Coeff of Randell (11.5-14.5) % Plt Count (130-400) K/uL MPV (7.4-10.4) fL Immature Gran % (Auto) % Neut % (Auto) % Lymph % (Auto) % [place] % (Auto) % Eos % (Auto) % Baso % (Auto) % Immature Gran # (Auto) (0.00-0.02) K/uL Neut # (Auto) (1.4-6.5) K/uL Lymph # (Auto) (1.2-3.4) K/uL [place] # (Auto) (0.11-0.59) K/uL Eos # (Auto) (0-0.5) K/uL Baso # (Auto) (0-0.2) K/uL PT (9.0-12.0) Seconds INR (0.9-1.1) APTT (21.0-31.0) Seconds PTT Ratio Sodium 139 (136-145) mmol/L Potassium 3.2 L (3.5-5.1) mmol/L Chloride 104 (98-107) mmol/L Carbon Dioxide 20 L (21-32) mmol/L Anion Gap 14.0 H (3-11) BUN 14 (7-18) mg/dl Creatinine 1.39 H (0.6-1.2) mg/dl Est Cr Clr Drug Dosing 30.3 ml/min Est GFR ( Amer) 43.8 Est GFR (Non-Af Amer) 37.8 BUN/Creatinine Ratio 10.1 (10-20) Glucose 131 H (70-99) mg/dl Calcium 10.3 H (8.5-10.1) mg/dl Magnesium (1.8-2.4) mg/dl Total Bilirubin 0.7 (0.2-1) mg/dl AST 22 (15-37) U/L ALT 29 (12-78) U/L Alkaline Phosphatase 65 (45-117) U/L Total Protein 8.2 (6.4-8.2) gm/dl Albumin 3.8 (3.4-5.0) gm/dl Globulin 4.4 H (2.5-4.0) gm/dl Albumin/Globulin Ratio 0.9 (0.9-2) Lipase 74 (73-393) U/L Urine Color Urine Appearance (Clear) Urine pH (4.5-7.5) Ur Specific [place] (1.000-1.030) Urine Protein (Negative) Urine Glucose (UA) (Negative) Urine Ketones (Negative) Urine Blood (Negative) Urine Nitrite (Negative) Urine Bilirubin (Negative) Urine Urobilinogen (Negative) Ur Leukocyte Esterase (Negative) Urine WBC (Auto) (0-5) /hpf Urine RBC (Auto) (0-4) /hpf U Hyaline Cast (Auto) (0-5) /lpf U Epithel Cells (Auto) (0-5) /lpf Urine Bacteria (Auto) (Negative) Ur Renal Epithelial Cell Urine Crystals (None Prsent) Urine Mucus (None Prsent) Stl C. diff Tox B Gene (Neg)
--- NOTE | 2018-08-30 16:21 | Hospitalist Progress Note ---
Date of Service August 30, 2018 Assessment & Plan (1) Small bowel obstruction: NGT was placed in the ER but came out overnight on its own. She is doing OK with it out. Cont to hold on anything PO until sevral hours of stability demonstrated. Pain is resolved at this time but continue Tylenol scheduled for now. (2) Acute maxillary sinusitis: She is currently received 6 days of Augmentin and reports no symptoms at this time. We will not pursue further antibiotic therapy. (3) Metastatic breast cancer: Takes twice daily medication for metastatic breast cancer. No IV option is available. Continue to hold p.o. meds until she is reliably tolerating PO (4) C. difficile colitis: History of recurrent C. difficile colitis, patient states diarrhea has been present since starting new chemo medication in April. REcent loos stools in setting of Augmentin last week. Cdiff is negative. (5) Hypokalemia: resolved. (6) DVT prophylaxis: Lovenox Full code Disposition- Expect patient to return home when medically stable, poss in am. Isabel Wise DO [facility] Hospitalist Subjective 73 yo F with metastatic breast cancer p/w SBO. NGT came out overnight and pain is resolved. She is clinically improved aside from a sore throat. +BM. Physical Exam 2 Vital Signs (Past 24 Hours): Last Vital Signs Temp 36.9 C 08/30/18 15:24 Pulse 82 08/30/18 15:24 Resp 18 08/30/18 15:24 BP 159/79 H 08/30/18 15:24 Pulse Ox 97 08/30/18 15:24 CONSTITUTIONAL: WNWD, vitals as above, NAD, clinically improved. EYES: normal conjuctivae, no scleral icterus ENT: Mucous membranes moist RESPIRATORY: clear to auscultation bilaterally, no crackles, rales or wheezes, normal respiratory effort CARDIOVASCULAR: regular rate and rhythm, S1 and 2 heard without murmurs, gallops or rubs, no peripheral edema GASTROINTESTINAL: +BS, soft, nondistended,nontender MUSCULOSKELETAL: head is normocephalic and atraumatic, strength is generally intact throughout. SKIN: warm and dry NEUROLOGIC: CN 2-12 grossly intact, normal cognition, normal speech PSYCHIATRIC: alert cooperative and oriented to person, place and time. Results & Data Laboratory Results Short CBC 08/30/18 Range/Units 06:38 WBC 6.97 (4.8-10.8) K/uL Hgb 9.8 L (12.0-16.0) g/dL Hct 28.7 L (37-47) % Plt Count 176 (130-400) K/uL BMP 08/30/18 06:38 Sodium 141 Potassium 3.9 D Chloride 110 H Carbon Dioxide 24 BUN 13 Creatinine 0.96 D Glucose 112 H Calcium 8.6 D Medications Administered Current Inpatient Medications Enoxaparin Sodium (Lovenox) 40 mg SQ QAM [facility] Stop: 09/29/18 08:59 Last Admin: 08/30/18 09:46 Dose: 40 mg Hydromorphone HCl (Dilaudid) 0.5 mg IV Q30M PRN PRN Reason: Severe Pain Stop: 09/12/18 19:27 Potassium Chloride 40 meq/ (Dextrose/Sodium Chloride) 1,020 mls @ 100 mls/hr IV .[id number] [facility] Stop: 09/28/18 20:14 Last Admin: 08/31/18 02:24 Dose: 100 mls/hr Acetaminophen (Ofirmev) 1,000 mg in 100 mls @ 400 mls/hr IV Q8H [facility] Stop: 09/28/18 19:59 Last Infusion: 08/31/18 04:18 Dose: Infused Menthol (Nice) 1 gael BUCCAL Q2H PRN PRN Reason: Sore Throat Stop: 09/29/18 11:40 Last Admin: 08/30/18 13:28 Dose: 1 gael Ondansetron HCl (Zofran) 4 mg IV Q8H PRN PRN Reason: nausea or vomiting Stop: 09/28/18 19:27 Phenol (Chloraseptic 1.4% [place]) 2 sprays MT Q2H PRN PRN Reason: Sore Throat Stop: 09/29/18 11:19 Promethazine HCl (Phenergan) 25 mg [place] Q6H PRN PRN Reason: Nausea And Vomiting Stop: 09/28/18 19:27 _ (1) Acute maxillary sinusitis Recurrence: non-recurrent Qualified Code(s): J01.00 - Acute maxillary sinusitis, unspecified
[2018-08-31] MEDS ORDERED: LORazepam 0.5 MG TAB PO STA ×2 (00:47→16:09)
[2018-08-31] MEDS: POTASSIUM CHLORIDE 40 MEQ in D5W AND NSS 1,000 ML IV SCH (02:24)
[2018-08-31] MEDS: ACETAMINOPHEN 1,000 MG/100 ML VIAL IV SCH (03:54)
[2018-08-31] MEDS ORDERED: ACETAMINOPHEN 325 MG TAB PO PRN (06:11)
[2018-08-31] MEDS: CALCIUM 600MG + VIT D 400 IU TAB PO SCH ×2 (08:55→20:29)
[2018-08-31] MEDS: PYRIDOXINE HCL 50 MG TAB PO SCH (08:55)
[2018-08-31] MEDS: ASPIRIN 81 MG ECTAB PO SCH (08:55)
[2018-08-31] MEDS: ENOXAPARIN INJ 40 MG/0.4 ML SYR SQ SCH (08:56)
--- NOTE | 2018-08-31 09:37 | Surgery Progress Note ---
Date of Service August 31, 2018 Assessment & Plan (1) Small bowel obstruction: Resolving afebrile + bowel function mild cramping abdominal pain abdomen soft, nondistended Plan: Would continue clear liquids for now, if tolerates better, may advance to full liquids for dinner Highly encouraged OOB to chair and ambulation as much as possible continue medical management Dr. Ferrari covering this weekend Dr. Chowdhury has seen patient, agrees with above Subjective had some occasional abdominal cramping pain last night with clear liquids, some this morning no nausea or vomiting + flatus, large liquid bowel movement yesterday Physical Exam 2 Vital Signs (Past 24 Hours): Last Vital Signs Temp 37.0 C 08/31/18 07:45 Pulse 77 08/31/18 07:45 Resp 15 08/31/18 07:45 BP 164/74 H 08/31/18 07:58 Pulse Ox 97 08/31/18 07:45 Constitutional: WD/WN, vitals as above no acute distress Respiratory: no respiratory distress, no labored breathing, no retractions and does not use accessory muscles Gastrointestinal (Abdomen): Inspection/Auscultation: + hypoactive bowel sounds ; abdomen not distended Percussion/Palpation: abdomen soft; abdomen nontender , no guarding and abdomen not rigid Skin: no rashes, warm and dry Psychiatric: A+Ox3, euthymic affect Results & Data Laboratory Results 08/30/18 Range/Units 08:37 Stl C. diff Tox B Gene Neg C.diff Toxin B (Neg)
--- NOTE | 2018-08-31 16:12 | Hospitalist Progress Note ---
Date of Service August 31, 2018 Assessment & Plan (1) Elevated blood pressure reading: uncontrolled, no h/o HTN. Gave Ativan with some improvement, however, still 150s systolic. Will start Norvasc. (2) Small bowel obstruction: NGT out-advanced to clears but some small twinges of pain with food. Cautiously advnace diet, possibly later tonight. (3) Acute maxillary sinusitis: She is currently received 6 days of Augmentin and reports no symptoms at this time. We will not pursue further antibiotic therapy. (4) Metastatic breast cancer: Takes twice daily medication for metastatic breast cancer. Cont PO chemo (5) H/O Clostridium difficile infection: Issues with recurrence, patient states diarrhea has been present since starting new chemo medication in April. Recent loos stools in setting of Augmentin last week. Cdiff is negative (6) DVT prophylaxis: Lovenox Full code Disposition- Expect patient to return home when medically stable, poss in am. Isabel Wise DO [facility] Hospitalist Subjective +some twinges of pain with clears +OK to try some food with dinner +restarted PO meds +ROS otherwise negative Physical Exam 2 Vital Signs (Past 24 Hours): Last Vital Signs Temp 36.9 C 08/31/18 15:05 Pulse 68 08/31/18 15:05 Resp 16 08/31/18 15:05 BP 185/71 H 08/31/18 15:05 Pulse Ox 99 08/31/18 15:05 CONSTITUTIONAL: WNWD, vitals as above, NAD, clinically improved. EYES: normal conjuctivae, no scleral icterus ENT: Mucous membranes moist RESPIRATORY: clear to auscultation bilaterally, no crackles, rales or wheezes, normal respiratory effort CARDIOVASCULAR: regular rate and rhythm, S1 and 2 heard without murmurs, gallops or rubs, no peripheral edema GASTROINTESTINAL: +BS, soft, nondistended, nontender MUSCULOSKELETAL: head is normocephalic and atraumatic, strength is generally intact throughout. SKIN: warm and dry NEUROLOGIC: CN 2-12 grossly intact, normal cognition, normal speech PSYCHIATRIC: alert cooperative and oriented to person, place and time. Results & Data Medications Administered Current Inpatient Medications Acetaminophen (Tylenol) 650 mg PO Q4H PRN PRN Reason: Pain or Fever Stop: 09/30/18 06:10 Amlodipine Besylate (Norvasc) 5 mg PO QAM [facility] Stop: 10/01/18 08:59 Aspirin (Ecotrin) 81 mg PO DAILY [facility] Stop: 09/30/18 08:59 Last Admin: 08/31/18 08:55 Dose: 81 mg Enoxaparin Sodium (Lovenox) 40 mg SQ QAM [facility] Stop: 09/29/18 08:59 Last Admin: 08/31/18 08:56 Dose: 40 mg Hydralazine HCl (Hydralazine Hcl) 5 mg IV Q6H PRN PRN Reason: SBP>170 Stop: 09/30/18 18:44 Hydromorphone HCl (Dilaudid) 0.5 mg IV Q30M PRN PRN Reason: Severe Pain Stop: 09/12/18 19:27 Menthol (Nice) 1 gael BUCCAL Q2H PRN PRN Reason: Sore Throat Stop: 09/29/18 11:40 Last Admin: 08/30/18 13:28 Dose: 1 gael Multivitamins/Minerals (Caltrate Plus) 1 tab PO BID [facility] Stop: 09/30/18 08:59 Last Admin: 08/31/18 20:29 Dose: 1 tab Abemaciclib [ Verzenio] 200 Mg Non -Formulary Patient's Own Med 1 ea PO BID17 [facility] Stop: 10/01/18 08:59 Ondansetron HCl (Zofran) 4 mg IV Q8H PRN PRN Reason: nausea or vomiting Stop: 09/28/18 19:27 Phenol (Chloraseptic 1.4% [place]) 2 sprays MT Q2H PRN PRN Reason: Sore Throat Stop: 09/29/18 11:19 Promethazine HCl (Phenergan) 25 mg [place] Q6H PRN PRN Reason: Nausea And Vomiting Stop: 09/28/18 19:27 Pyridoxine HCl (Vitamin B-6) 50 mg PO DAILY [facility] Stop: 09/30/18 08:59 Last Admin: 08/31/18 08:55 Dose: 50 mg _ (1) Acute maxillary sinusitis Recurrence: non-recurrent Qualified Code(s): J01.00 - Acute maxillary sinusitis, unspecified
[2018-08-31] MEDS ORDERED: AMLODIPINE BESYLATE 5 MG TAB PO ONE (18:31)
[2018-08-31] MEDS ORDERED: HydrALAZINE HCL 20 MG/ML VIAL IV PRN (18:33)
[2018-09-01] MEDS ORDERED: LORazepam 0.5 MG/1 ML VIAL IV STA (00:35)
[2018-09-01 06:28] LABS: Hematocrit (blood only) 27.1 % (37-47); Hemoglobin 9.2 g/dL (12.0-16.0); Mean Corpuscular Hgb Conc 33.9 g/dL (32-36); Mean Corpuscular Volume 101.5 fL (80-100); Mean Platelet Volume 9.2 fL (7.4-10.4); Platelet Count 147 K/uL (130-400); RDW Coefficient of Variation 14.4 % (11.5-14.5); Red Blood Count 2.67 M/uL (4.2-5.4); White Blood Count 4.74 K/uL (4.8-10.8)
[2018-09-01 07:02] LABS: BUN Creatinine Ratio 9.7 (10-20); Calcium 8.7 mg/dl (8.5-10.1); Creatinine Clr Calc Pharmacy 47.3 ml/min; Est GFR (African American) 79.3; Est GFR (Non-African American) 68.5; Potassium 3.5 mmol/L (3.5-5.1)
[2018-09-01] MEDS: ASPIRIN 81 MG ECTAB PO SCH (07:46)
[2018-09-01] MEDS: PYRIDOXINE HCL 50 MG TAB PO SCH (07:46)
[2018-09-01] MEDS: ENOXAPARIN INJ 40 MG/0.4 ML SYR SQ SCH (07:46)
[2018-09-01] MEDS: CALCIUM 600MG + VIT D 400 IU TAB PO SCH (07:47)
[2018-09-01] MEDS ORDERED: ABEMACICLIB PO SCH (09:00)
[2018-09-01] MEDS ORDERED: AMLODIPINE BESYLATE 5 MG TAB PO SCH (09:00)
--- NOTE | 2018-09-01 09:35 | Surgery Progress Note ---
Date of Service September 01, 2018 Assessment & Plan (1) SBO (small bowel obstruction): doing well clinically no acute issues ok from surgery standpoint for d/c please call if any questions or concerns Subjective no new complaints/feeling better. +BM's. no pain Physical Exam 2 Vital Signs (Past 24 Hours): Last Vital Signs Temp 37 C 09/01/18 07:06 Pulse 82 09/01/18 07:06 Resp 16 09/01/18 07:06 BP 147/69 H 09/01/18 07:06 Pulse Ox 98 09/01/18 07:06 Physical Exam: alert/oriented. NAD abdomen: soft. non-distended. non-tender
[2018-09-01] MEDS ORDERED: FLUCONAZOLE 50 MG TAB PO STA (11:00)
--- NOTE | 2018-09-06 11:02 | Discharge Summary ---
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 The patient states she last had some toast this morning and she has had several episodes of diarrhea. She notes some loose stools frequently with her cancer medication, Verzenio, which has been started since April. She recently received a shot of Xgeva earlier today at the hematology office. She reports this has not have an adverse effect on her in the past. She has a history of total abdominal hysterectomy in the past. She denies any history of SBO. She denies any blood per rectum. She reports being in the emergency room last week for a sinus infection, of which all symptoms have resolved. Augmentin was taken for approximately 6 days. She is currently in significant pain doubled over and in significant distress in the ER. Family is at bedside. She will be receiving an NG tube. Admission Exam Per Admitting Provider CONSTITUTIONAL: WNWD, vitals as above, in acute distress, doubled over, moaning in pain, guarding and grabbing abdomen EYES: normal conjuctivae, no scleral icterus ENT: Mucous membranes dry RESPIRATORY: clear to auscultation bilaterally, no crackles, rales or wheezes, normal respiratory effort CARDIOVASCULAR: regular rate and rhythm, S1 and 2 heard without murmurs, gallops or rubs, no peripheral edema GASTROINTESTINAL: Hypoactive bowel sounds, soft, nondistended, diffuse tenderness, positive guarding, negative CVA tenderness. MUSCULOSKELETAL: head is normocephalic and atraumatic, strength is generally intact throughout. SKIN: warm and dry NEUROLOGIC: Difficult to completely assess as patient is in pain. CN 2-12 grossly intact, normal cognition, normal speech PSYCHIATRIC: alert cooperative and oriented to person, place and time. Principal Diagnosis SBO Discharge Exam CONSTITUTIONAL: WNWD, vitals as above, NAD, clinically improved. EYES: normal conjuctivae, no scleral icterus ENT: Mucous membranes moist RESPIRATORY: clear to auscultation bilaterally, no crackles, rales or wheezes, normal respiratory effort CARDIOVASCULAR: regular rate and rhythm, S1 and 2 heard without murmurs, gallops or rubs, no peripheral edema GASTROINTESTINAL: +BS, soft, nondistended, nontender MUSCULOSKELETAL: head is normocephalic and atraumatic, strength is generally intact throughout. SKIN: warm and dry NEUROLOGIC: CN 2-12 grossly intact, normal cognition, normal speech PSYCHIATRIC: alert cooperative and oriented to person, place and time. Discharge Data Allergies Allergy/AdvReac Type Severity Reaction Status Date / Time codeine AdvReac Unknown HEADACHE Verified 08/23/18 00:03 Consultations 08/29/18 15:29 ED Decision to Admit Stat 08/29/18 19:28 Consult Case Management - Discharge Planning Routine Consult General Surgery Routine Ordered Studies 08/29/18 14:11 CT abd pelvis wo con Stat Hospital Course (1) Elevated blood pressure reading: (2) Small bowel obstruction: (3) Acute maxillary sinusitis: (4) Metastatic breast cancer: (5) H/O Clostridium difficile infection: 73-year-old female presented to the ER with worsening abdominal pain in the last 24 hours. She had a history of recurrent C. difficile colitis. She had recently been on Augmentin for a sinus infection and takes oral chemotherapy for metastatic breast cancer daily. She notes a history of chronic loose stools and reports this has continued without worsening. On arrival she was hemodynamically stable and afebrile. She was vaccinating well on room air. She was administered morphine IV, Zofran and given saline IV for significant pain. General surgery was consulted and did not deem the patient operable. NG tube was not placed as she was not vomiting. She was admitted to the hospitalist service and pain was aggressively controlled overnight. She slowly began to improve spontaneously over the next several days. At time of discharge she was reliably tolerating solid food. Stool studies were performed and were negative for C. difficile or other infection. During her hospitalization blood pressure was notably elevated in the 160-180 range systolic. She was given some Ativan without enough improvement. Therefore, she was started on low-dose Norvasc to be continued at discharge. She reported her acute maxillary sinusitis symptoms had resolved. At the time of admission she only received 6 days of Augmentin. However because she was clinically better, no further antibiotic was administered during his hospitalization to minimize recurrent C. difficile risk. At time of discharge she was hemodynamically stable and afebrile, she was tolerating p.o. She was mentating and ambulating at baseline. She was discharged in stable condition with close PCP follow-up recommended. Total Time Total Time Spent Total Time Spent (In Minutes): 60 Total Time Includes: Examination of the Patient, Discharge Planning, Medication Reconciliation and Communication With Other Providers Discharge Plan Discharge Items Patient Disposition: Home - Self-Care Reason For Visit: SBO Discharge Diagnosis: SBO Condition: Good Discharge Goals: Improve disease control Activity: Resume your previous activity Non-emergency contact: Primary Care Provider Call non-emergency contact if: you have any medication questions, your symptoms worsen, your pain is not controlled and you have a fever Follow-up/Referrals: Harleen Gonzalez PA-C [Primary Care Provider] - Diet: Heart Healthy Addtl Provider Instructions: Please take all medications as instructed on discharge list below. It is recommended that you follow-up with your primary care provider within 1 week of discharge. Please discuss new blood pressure medication and have blood pressure assessed at this appointment. It was a pleasure taking care of you! Please call if you have any questions or problems. You can reach a [facility] hospitalist on duty at [facility] 24 hours a day by calling [phone]. Take care of yourself. Isabel Wise, DO [facility] Hospitalist Prescriptions: New amlodipine [Norvasc] 5 mg Tablet 5 mg PO QAM Qty: 30 RF: 1 Continue aspirin 81 mg Tablet,Delayed Release (Dr/Ec) 81 mg PO DAILY RF: 0 lactobacillus combination no.4 [Probiotic] 3 billion cell Capsule 3,000 mmu cells PO DAILY RF: 0 pyridoxine (vitamin B6) [Vitamin B-6] 50 mg Capsule 1 tab PO DAILY RF: 0 denosumab [Xgeva] 120 mg/1.7 mL (70 mg/mL) Solution 120 mg SUBCUT Q90D RF: 0 abemaciclib [Verzenio] 200 mg Tablet 200 mg PO BID RF: 0 trazodone 50 mg tablet 50 mg PO HS PRN (Reason: Insomnia) RF: 0 ondansetron HCl [Zofran] 8 mg Tablet 8 mg PO TID PRN (Reason: Nausea) RF: 0 Calcium 600 + D(3) 1 tab PO BID RF: 0 Discontinued hydrocodone-homatropine [Hydrocodone Compound] 5-1.5 mg/5 mL syrup 5 ml PO Q6H PRN (Reason: cough) Qty: 100 RF: 0 amoxicillin-pot clavulanate [Augmentin] 875-125 mg tablet 1 tab PO BID Qty: 20 RF: 0 Visit Report Forms: My [facility] [place] [facility] [facility] Stand-Alone Forms: My [facility] Discharge Orders: Discharge Order (Routine); Ordered 09/01/18 Ordered By: Isabel Wise Admission Data Admit Date/Time: 08/29/18 16:24 Attending Provider: Isabel Wise Admit Provider: Isabel Wise Primary Care Provider: Harleen Gonzalez Other Providers: Hitesh Chowdhury Service: Surgical Services Other Interventions: Discharge Summary Assessment (RN) Last Done: 09/01/18 14:34 DC Date/Time DO NOT enter until pt leaves facility: 09/01/18 15:04
== END 2018-09-01 15:04 | disposition home or self-care (01) | DRG 389 ==
LOC: ED 13:13 → 3W 16:24
DX: E87.6 Hypokalemia; C50.919 Malignant neoplasm of unspecified site of unspecified female breast; J01.00 Acute maxillary sinusitis, unspecified; N17.9 Acute kidney failure, unspecified; Z79.899 Other long term (current) drug therapy; K56.50 Intestinal adhesions [bands], unspecified as to partial versus complete obstruction; Z79.82 Long term (current) use of aspirin; C79.51 Secondary malignant neoplasm of bone

== ENCOUNTER 2019-03-04 10:49 | Inpatient (IN) ==
[2019-03-04 11:50] LABS: Basophils # (auto) 0.04 K/uL (0-0.2); Eosinophils % (auto) 2.4 %; Hematocrit (blood only) 33.9 % (37-47); Hemoglobin 11.8 g/dL (12.0-16.0); Immature Granulocytes # (auto) 0.05 K/uL (0.00-0.02); Immature Granulocytes % (auto) 1.2 %; Lymphocytes # (auto) 0.72 K/uL (1.2-3.4); Lymphocytes % (auto) 17.5 %; Mean Corpuscular Hgb Conc 34.8 g/dL (32-36); Mean Corpuscular Volume 99.1 fL (80-100); Mean Platelet Volume 9.7 fL (7.4-10.4); Monocytes # (auto) 0.42 K/uL (0.11-0.59); Monocytes % (auto) 10.2 %; Neutrophils # (auto) 2.79 K/uL (1.4-6.5); Neutrophils % (auto) 67.7 %; Platelet Count 144 K/uL (130-400); RDW Coefficient of Variation 15.8 % (11.5-14.5); RDW Standard Deviation 57.7 fL (36.4-46.3); Red Blood Count 3.42 M/uL (4.2-5.4); White Blood Count 4.12 K/uL (4.8-10.8)
[2019-03-04 12:00] LABS: Appearance Urine Clear (Clear); Bilirubin Urine Negative (Negative); Blood Urine Negative (Negative); Color Urine Yellow; Glucose Urine UA Negative (Negative); Ketones Urine Negative (Negative); Leukocyte Esterase Urine Negative (Negative); Nitrite Urine Negative (Negative); Protein Urine Negative (Negative); Specific Gravity Urine 1.017 (1.000-1.030); Urobilinogen Urine Negative (Negative)
[2019-03-04 12:20] LABS: Albumin Globulin Ratio 0.9 (0.9-2); Albumin Level 3.8 gm/dl (3.4-5.0); BUN Creatinine Ratio 14.8 (10-20); Bilirubin,Total 0.7 mg/dl (0.2-1); Est GFR (African American) 40.2; Est GFR (Non-African American) 34.7; Globulin 4.3 gm/dl (2.5-4.0); Potassium 3.8 mmol/L (3.5-5.1); Total Protein 8.1 gm/dl (6.4-8.2)
[2019-03-04] MEDS ORDERED: SODIUM CHLORIDE 0.9% 1000ML 2,000 ML IV ONE (12:55)
[2019-03-04] MEDS ORDERED: ZOLEDRONIC ACID 4 MG in 0.9 % SODIUM CHLORIDE 100 ML IV STA (12:56)
--- NOTE | 2019-03-04 14:14 | History & Physical Report ---
Date of Service March 04, 2019 Assessment & Plan (1) Hypercalcemia: This is a 73-year-old female who has a significant past medical history of stage IV breast cancer with mets to bone status post radiation and chemo, CKD stage III, history of C. difficile who presents to [facility] secondary to weakness and fatigue for approximately 3 weeks. Was sent to ED per oncologist Dr. Chavis due to symptoms and MRI concerning for enlarging pituitary and questionable metastatic disease recommending LP. In ED patient's calcium was noted to be 14.0, BUN 22, creatinine 1.49, WBC 4.12, hemoglobin 9.8, hematocrit 33.9, platelet 144. ER physician contacted Dr. Chavis who recommended treating the hypercalcemia and holding off on LP as it is felt her symptoms are likely secondary to symptomatic hypercalcemia. She received IV fluid as well as 4 mg IV zoledronic acid while in ED. admit to med/surg telemetry consult nephrology due to hypercalcemia continue IVF 75cc/hr Order Lasix 40mg IV x 1 repeat bmp and ionized ca at 6pm spoke to Dr. Chavis oncology who recommends treatment of hypercalcemia, likely etiology of symptoms. MRI as outpt 03/02 revealed Interval enlargement of the pituitary gland and the pituitary infundibulum, nonspecific. The findings are somewhat suspicious for metastatic disease. Consider correlation with lumbar puncture, and CSF cytology. Dr. Chavis recommends holding off of LP for now as this can be done outpt unless she clinically doesn't improve (2) Breast cancer: Stage 4 L breast ca (dx 09/2011) s/p radical L mastectomy with mets to bone, b/l adrenal glad and left neck LN s/p XRT (last tx 1.5 month ago) and chemo hormone refractory disease recently received palliative xrt to C spine and T12 vertebral body recent PET 02/07/19 shows new bony mets, no visceral metastatic disease planning to start systemic Abraxane once port established - pt is to meet with Dr. Chowdhury in upcoming days for port placement Follows Dr. Chavis oncology Had been receiving Xgeva q 3 mon last tx 02/26/19 (3) CKD (chronic kidney disease), stage III: baseline cr 1.1 bun/cr 22 and 1.49 today like JIMBO on CKD in setting of dehydration and hypercalcemia continue IVF - repeat bmp at 6pm and a.m. nephrology consulted (4) HTN (hypertension): blood pressure elevated dx of HTN per epic but not on oral antihypertensives monitor (5) DVT prophylaxis: given current malignacy and age pt high risk for vte place on lovenox 30mg SQ (due to renal impairment and weight) SCDS/TEDS Disposition: admit to med/surg telemetry; D/C to home when able Follow up: PCP Harleen Gonzalez PA-C along with appropriate heme/onc follow up with Dr. Chavis Patient was seen and examined in collaboration with Dr. Carter, please see addendum History of Present Illness Chief Complaint: weakness and fatigue x 2-3 weeks Primary Care Provider: Harleen Gonzalez This is a 73-year-old female who has a significant past medical history of stage IV breast cancer with mets to bone status post radiation and chemo, CKD stage III, history of C. difficile who presents to [facility] secondary to weakness and fatigue for approximately 3 weeks. Patient states over the past 3 weeks she has been getting progressive weakness and fatigue to the point she is unable to, "do anything." She complains of difficulty walking stairs or do ADLs. She has never experienced this in the past. She further elicits to being lightheaded, dyspnea on exertion, constipation. She does have a noted weight loss of approximately 16 pounds in the past several months given her active cancer. She denies any fever, chills, sweats, syncope or presyncope, dizziness, chest pain, palpitations, shortness breath at rest, hemoptysis, nausea, vomiting, abdominal pain, diarrhea, dysuria, hematuria, increased urgency or frequency with urination. She further denies any melena or hematochezia. She has been taking MiraLAX x1 for her difficulty moving bowels. Of note patient was seen on 02/26 for an Xgeva injection but it was noted her calcium to be 11.8. She was given IV fluid x1 at that time. Also of note patient had an MRI on 03/02 which revealed enlarged pituitary gland questionable suspicion for metastatic disease recommending LP. Patient had called into her oncologist Dr. Chavis who recommended she seek ER evaluation for possible LP given her symptoms. However, in ED patient's calcium was noted to be 14.0, BUN 22, creatinine 1.49, WBC 4.12, hemoglobin 9.8, hematocrit 33.9, platelet 144. ER physician contacted Dr. Chavis who recommended treating the hypercalcemia and holding off on LP as it is felt her symptoms are likely secondary to symptomatic hypercalcemia. She received IV fluid as well as 4 mg IV zoledronic acid while in ED. Allergies Allergy/AdvReac Type Severity Reaction Status Date / Time codeine AdvReac Unknown HEADACHE Verified 03/04/19 12:27 Home Medications Home Medications Medication Instructions Recorded Confirmed Type Probiotic 3,000 mmu cells PO QAM 08/23/18 03/04/19 History aspirin 81 mg PO QAM 08/23/18 03/04/19 History ondansetron HCl [Zofran] 8 mg PO TID PRN 08/29/18 03/04/19 History trazodone 50 mg PO HS PRN 08/29/18 03/04/19 History pbwttnz-gntjdufeztvyn-acsdgiqo 2 tab PO Q6H PRN 03/04/19 03/04/19 History [Excedrin Extra Strength] calcium carbonate-vitamin D3 1 tab PO BIDM 03/04/19 03/04/19 History [Caltrate 600 + D] potassium phosphate, monobasic 1,000 mg PO DAILY 03/04/19 03/04/19 History [K-Phos Original] pyridoxine (vitamin B6) [Vitamin 100 mg PO DAILY 03/04/19 03/04/19 History B-6] Past Med/Surg History Medical History HTN (hypertension) (Chronic) HLD (hyperlipidemia) (Chronic) Breast cancer (Chronic) H/O Clostridium difficile infection (Chronic) C. difficile colitis (Chronic) Diverticulitis (Chronic) SBO (small bowel obstruction) (Resolved) Acute ethmoidal sinusitis (Inactive) Acute maxillary sinusitis (Inactive) Acute sphenoidal sinusitis (Inactive) Metastatic breast cancer (Inactive) Surgical History History of resection of rib (Chronic) cervical rib removal History of bilateral salpingo-oophorectomy (BSO) (Chronic) H/O mastectomy (Chronic) Radical left masectomy History of right hip replacement (Chronic) History of hysterectomy (Resolved) Family History Father , age 69 Coronary heart disease, Onset Age: 40 [place] @ 40 Diabetes Myocardial infarction, Onset Age: 40 Mother Paget disease of bone, Onset Age: 39 Social History Preferred Language: Maltese Communication Ability: Effective Beliefs That Will Affect Care: None marital status: Current Living Situation: Spouse current occupational status: retired Other Information That Helps Us Care for You: No Feels Safe at Home: Yes Safety Concerns: Feels Safe At This Time Smoking Status: Never smoker Second Hand Exposure: No Hx Alcohol Use: No Hx Substance Use: No Review of Systems Review of Systems: As noted per HPI, 10 systems reviewed and negative unless noted above. Physical Exam Physical Exam: Gen: Petite, Thin, F, NAD, sitting up in bed, pleasant, conversing easily Head: Normocephalic, Atraumatic Eyes: Sclera normal, no conjunctival injection, PERRLA, EOMI ENT: Gross hearing intact, normal pharynx, mucous membranes moist Neck: supple, no adenopathy, No JVD, no bruit, Resp: Clear to auscultation b/l, no wheeze, rales, rhonchi. Normal insp/exp effort, no accessory muscle use CV: Regular rate, regular rhythm, no murmur, rub, gallop, or ectopy Abd: +BS x 4, soft, nontender, nondistended Musculoskeletal: moves extremities active rom x 4, strength intact, good cash processing specialist strength Extremities: No edema bilaterally Skin: warm, moist, no rash, negative turgor, cap refill < 2sec Neuro: Alert and oriented x 3, speech normal, good mood/affect, cran nerve 2-12 intact grossly : deferred Results & Data Vital Signs (Past 12 Hours) Vital Signs Temp Pulse Resp BP Pulse Ox 03/04/19 11:38 73 18 99 03/04/19 10:51 36.8 C 95 H 16 157/79 H 98 Laboratory Results Short CBC 03/04/19 03/04/19 Range/Units 11:36 11:36 WBC 4.12 L (4.8-10.8) K/uL Hgb 11.8 L (12.0-16.0) g/dL Hct 33.9 L (37-47) % Plt Count 144 (130-400) K/uL Creatinine 1.49 H (0.6-1.2) mg/dl BMP 03/04/19 11:36 Sodium 138 Potassium 3.8 Chloride 103 Carbon Dioxide 27 BUN 22 H Creatinine 1.49 H Glucose 127 H Calcium 14.0 H* Liver Function 03/04/19 Range/Units 11:36 Total Bilirubin 0.7 (0.2-1) mg/dl AST 92 H (15-37) U/L ALT 58 (12-78) U/L Alkaline Phosphatase 118 H (45-117) U/L Albumin 3.8 (3.4-5.0) gm/dl Urine 03/04/19 Range/Units 11:39 Urine Color Yellow Urine Appearance Clear (Clear) Urine pH 5.0 (4.5-7.5) Ur Specific Mize 1.017 (1.000-1.030) Urine Protein Negative (Negative) Urine Glucose (UA) Negative (Negative) Medications Administered Sodium Chloride (Nss 1000ml) 2,000 mls @ 999 mls/hr IV .Q2H1M ONE Stop: 03/04/19 14:55 Last Admin: 03/04/19 13:41 Dose: 999 mls/hr Documented by: [id number] Discontinued Medications Zoledronic Acid 4 mg/ Sodium (Chloride) 105 mls @ 420 mls/hr IV NOW STA Stop: 03/04/19 13:10 Last Infusion: 03/04/19 13:45 Dose: 0 mls/hr Documented by: [id number] Admin: 03/04/19 13:30 Dose: 420 mls/hr Documented by: [id number] Code Status & VTE Plan Code Status Full Code VTE Prophylaxis Plan VTE Prophylaxis will be ordered: Yes Supervising Physician Co-Signing Physician Notes Patient is a 73-year-old female with history of metastatic breast cancer, CKD and other problems presents with history of progressively worsening generalized weakness, fatigue, headache, lightheadedness, dyspnea on exertion, constipation, weight loss. Please review HPI for complete details of presentation. Patient was noted to have hypercalcemia, JIMBO and clinically seems to be dehydrated. On exam patient is chronically appearing, +hair loss, normocephalic atraumatic, no apparent distress, lungs are clear to auscultation, S1-S2, no murmur, no pedal edema, no neck stiffness, abdomen soft nontender, grossly no focal neurological deficits. Patient is admitted for management of hypercalcemia likely secondary to metastatic disease. Patient received IV fluids, Zometa in ED. Will give IV Lasix and continue IV fluids. Agree with hypercalcemia work-up. Hold calcium and vitamin D supplements. Nephrology consulted. Monitor renal function. Avoid nephrotoxic agents as able. PT/OT prior to discharge. Consider oncology evaluation as needed. Bowel regimen for constipation. I personally reviewed the record. Patient is interviewed and examined at bedside. Patient's care is coordinated with Odalis Squires PA-C. Please refer to the documentation above for details of patient's presentation and for discussion of other issues.
[2019-03-04 14:41] LABS: Phosphorus 1.9 mg/dl (2.5-4.9)
[2019-03-04] MEDS ORDERED: TRAZODONE HCL 50 MG TAB PO PRN (15:49)
[2019-03-04] MEDS ORDERED: FUROSEMIDE 40 MG/4 ML VIAL IV ONE (15:49)
[2019-03-04] MEDS ORDERED: POLYETHYLENE (MIRALAX) 17 GM PACK PO ONE (15:49)
[2019-03-04] MEDS ORDERED: POLYETHYLENE (MIRALAX) 17 GM PACK PO PRN (15:49)
[2019-03-04] MEDS ORDERED: FUROSEMIDE 40 MG in SYRINGE 0 ML IV STA (16:05)
[2019-03-04] MEDS: SODIUM CHLORIDE 0.9% 1000ML 1,000 ML IV SCH (16:27)
[2019-03-04] MEDS ORDERED: CALCITONIN SALMON 400 UNITS/2 ML SQ SCH (17:00)
--- NOTE | 2019-03-04 17:06 | Emergency Department Note ---
Entered by Vera Blakely acting as a scribe for Surinder Seo DO History of Present Illness General Chief complaint: Abnormal Labs/Diagnostic Testing Stated complaint: SENT FROM DOCTOR FOR SPINAL TAP S/P CT OF BRAIN Source: patient Mode of arrival: ambulatory Limitations: no limitations History of Present Illness Onset (ago): day(s) 2 Radiation: non-radiation Pain Consistency: + constant Maximum Pain Intensity: 5 Relieved By: + none Exacerbated By: + none Associated symptoms: + headaches, + weakness and + other (-localized weakness or numbness in the arms or legs); no cough (or rhinorrhea), no fever/chills and no nausea/vomiting Treatments prior to arrival: none The patient is a 73 year old female who presents to the ED with complaints of abnormal lab work. She states she has been increasingly weak for the past few days and has also experienced a headache. She follows with Dr. Chavis of [facility] for stage 4 metastatic breast cancer. She had an MRI 2 days ago and states when she called his office this morning, she was told to come to the ED for a spinal tap. She denies any recent cough, rhinorrhea, fevers, nausea or vomiting. Her last chemotherapy was 2 weeks ago. She is scheduled to see Dr. Chowdhury in 2 days for port placement. She denies any localized weakness or numbness in her arms or legs. She does complain of a headache for the past 4 days. Home Medications Home Medications Medication Instructions Recorded Confirmed Type Probiotic 3,000 mmu cells PO QAM 08/23/18 03/04/19 History aspirin 81 mg PO QAM 08/23/18 03/04/19 History ondansetron HCl [Zofran] 8 mg PO TID PRN 08/29/18 03/04/19 History trazodone 50 mg PO HS PRN 08/29/18 03/04/19 History kllvpeh-dxjkiydjmluzd-zlrmmzsk 2 tab PO Q6H PRN 03/04/19 03/04/19 History [Excedrin Extra Strength] calcium carbonate-vitamin D3 1 tab PO BIDM 03/04/19 03/04/19 History [Caltrate 600 + D] potassium phosphate, monobasic 1,000 mg PO DAILY 03/04/19 03/04/19 History [K-Phos Original] pyridoxine (vitamin B6) [Vitamin 100 mg PO DAILY 03/04/19 03/04/19 History B-6] Allergies Allergy/AdvReac Type Severity Reaction Status Date / Time codeine AdvReac Unknown HEADACHE Verified 03/04/19 12:27 Past Med/Surg History Medical History HTN (hypertension) (Chronic) HLD (hyperlipidemia) (Chronic) Breast cancer (Chronic) H/O Clostridium difficile infection (Chronic) C. difficile colitis (Chronic) Diverticulitis (Chronic) SBO (small bowel obstruction) (Resolved) Acute ethmoidal sinusitis (Inactive) Acute maxillary sinusitis (Inactive) Acute sphenoidal sinusitis (Inactive) Metastatic breast cancer (Inactive) Surgical History History of resection of rib (Chronic) cervical rib removal History of bilateral salpingo-oophorectomy (BSO) (Chronic) H/O mastectomy (Chronic) Radical left masectomy History of right hip replacement (Chronic) History of hysterectomy (Resolved) Family History Father , age 69 Coronary heart disease, Onset Age: 40 [place] @ 40 Diabetes Myocardial infarction, Onset Age: 40 Mother Paget disease of bone, Onset Age: 39 Social History Preferred Language: Kinyarwanda Communication Ability: Effective Beliefs That Will Affect Care: None marital status: Current Living Situation: Spouse current occupational status: retired Other Information That Helps Us Care for You: No Feels Safe at Home: Yes Safety Concerns: Feels Safe At This Time Smoking Status: Never smoker Second Hand Exposure: No Hx Alcohol Use: No Hx Substance Use: No Review of Systems See HPI for pertinent positives & negatives. and A total of 10 systems reviewed and were otherwise negative Physical Exam Vital Signs Vital Signs - 24 hr 03/04/19 10:51 03/04/19 11:36 03/04/19 11:38 Temperature 36.8 C Temperature Source Oral Sepsis Recent Fever Within 48 Hours No Sepsis New/Unexplained Change in Mental Status No Sepsis Action Taken by Nursing No Action Required Pulse Rate 95 H 73 72 Pulse Rate from SpO2 Sensor 73 72 Pulse Rhythm Regular Respiratory Rate 16 17 16 Blood Pressure 157/79 H 156/68 H Blood Pressure Mean 105 97 Pulse Oximetry 98 98 98 Oxygen Delivery Method Room Air Room Air 03/04/19 12:00 03/04/19 12:30 03/04/19 13:00 Temperature Temperature Source Sepsis Recent Fever Within 48 Hours Sepsis New/Unexplained Change in Mental Status Sepsis Action Taken by Nursing Pulse Rate 70 69 70 Pulse Rate from SpO2 Sensor 70 68 70 Pulse Rhythm Respiratory Rate 14 15 18 Blood Pressure 135/65 128/67 143/72 H Blood Pressure Mean 88 87 95 Pulse Oximetry 98 98 98 Oxygen Delivery Method 03/04/19 13:01 03/04/19 13:30 Temperature Temperature Source Sepsis Recent Fever Within 48 Hours Sepsis New/Unexplained Change in Mental Status Sepsis Action Taken by Nursing Pulse Rate 71 70 Pulse Rate from SpO2 Sensor 73 71 Pulse Rhythm Respiratory Rate 17 17 Blood Pressure 152/79 H Blood Pressure Mean 103 Pulse Oximetry 99 98 Oxygen Delivery Method GENERAL: Patient is sitting up in bed, cachectic, chronically ill-appearing, alert, well nourished, no distress, non-toxic EYE EXAM: normal conjunctiva, PERRL and EOM's intact OROPHARYNX: no exudate, no erythema, lips, buccal mucosa, and tongue normal and mucous membranes are moist NECK: supple, no nuchal rigidity, no adenopathy, non-tender LUNGS: Clear to auscultation. Normal chest wall mechanics HEART: no murmurs, S1 normal and S2 normal ABDOMEN: abdomen soft, non-tender, normo-active bowel sounds, no masses, no rebound or guarding. BACK: Back is symmetrical on inspection and there is no deformity, no midline tenderness, no CVA tenderness. SKIN: no rashes and no bruising UPPER EXTREMITIES: upper extremities are grossly normal. LOWER EXTREMITIES: No pitting edema. NEURO EXAM: Normal sensorium, cranial nerves II-XII intact, normal speech, no weakness of arms, no weakness of legs. No drift. Finger to nose intact. Gross sensation intact. Course ED COURSE: Vital signs were reviewed and showed the patient is hypertensive. The patients medical record was reviewed. The above diagnostic studies were performed and reviewed. ED treatments and interventions as stated above. 1111: The patient was evaluated in room C3. A complete history and physical examination was performed. 1120: I discussed the patients case with Dr. Chavis, [facility]. He recommends a lumbar puncture. 1305: I discussed the patients case with Odalis Squires PA-C, [facility] Thomas ospitalist. The patient will be further evaluated. 1315: Upon reevaluation, the patient is resting comfortably. I discussed my findings with the patient and she understands and agrees with the treatment plan. Based on the patients age, coexisting illnesses, exam and lab findings the decision to treat as an inpatient was made. The patient remained stable while under my care. The patient will be evaluated for further management. Consultations Consultation #1: I discussed the patients case with Chanda Malcolm [facility]. He recommends a lumbar puncture. Time: 11:20 Consultation #2: I discussed the patients case [facility] Odalis Squ[facility] The patient will be further evaluated. Time: 13:05 Administered Medications Sodium Chloride (Nss 1000ml) 1,000 mls @ 150 mls/hr IV .Q6H40M SHAHEEN Stop: 04/03/19 15:48 Last Admin: 03/04/19 16:27 Dose: 75 mls/hr Documented by: [id number] Discontinued Medications Sodium Chloride (Nss 1000ml) 2,000 mls @ 999 mls/hr IV .Q2H1M ONE Stop: 03/04/19 14:55 Last Infusion: 03/04/19 14:58 Dose: 0 mls/hr Documented by: [id number] Admin: 03/04/19 13:41 Dose: 999 mls/hr Documented by: [id number] Zoledronic Acid 4 mg/ Sodium (Chloride) 105 mls @ 420 mls/hr IV NOW STA Stop: 03/04/19 13:10 Last Infusion: 03/04/19 13:45 Dose: 0 mls/hr Documented by: [id number] Admin: 03/04/19 13:30 Dose: 420 mls/hr Documented by: [id number] Furosemide 40 mg/ Syringe 4 mls @ 4 mls/min IV NOW STA Stop: 03/04/19 16:06 Last Admin: 03/04/19 16:56 Dose: 4 mls/min Documented by: [id number] Medical Decision Making Differential Diagnosis Differential diagnosis includes etiologies such as ectopic , dysfunction uterine bleeding, bleeding dyscrasia, trauma, infection, as well as others were entertained. Medical Records Attestation: I reviewed the patient's medical records. Home Medications Current Medication List: was not reviewed Laboratory Data Attestation: I reviewed the patient's lab results. Result diagrams: 03/04/19 11:36 03/04/19 11:36 Lab Results 03/04/19 03/04/19 03/04/19 Range/Units 11:36 11:36 11:36 WBC 4.12 L (4.8-10.8) K/uL RBC 3.42 L (4.2-5.4) M/uL Hgb 11.8 L (12.0-16.0) g/dL Hct 33.9 L (37-47) % MCV 99.1 (80-100) fL MCH 34.5 H (25-34) pg MCHC 34.8 (32-36) g/dL RDW Std Deviation 57.7 H (36.4-46.3) fL RDW Coeff of Randell 15.8 H (11.5-14.5) % Plt Count 144 (130-400) K/uL MPV 9.7 (7.4-10.4) fL Immature Gran % (Auto) 1.2 % Neut % (Auto) 67.7 % Lymph % (Auto) 17.5 % [place] % (Auto) 10.2 % Eos % (Auto) 2.4 % Baso % (Auto) 1.0 % Immature Gran # (Auto) 0.05 H (0.00-0.02) K/uL Neut # (Auto) 2.79 (1.4-6.5) K/uL Lymph # (Auto) 0.72 L (1.2-3.4) K/uL [place] # (Auto) 0.42 (0.11-0.59) K/uL Eos # (Auto) 0.10 (0-0.5) K/uL Baso # (Auto) 0.04 (0-0.2) K/uL Sodium 138 (136-145) mmol/L Potassium 3.8 (3.5-5.1) mmol/L Chloride 103 (98-107) mmol/L Carbon Dioxide 27 (21-32) mmol/L Anion Gap 8.0 (3-11) BUN 22 H (7-18) mg/dl Creatinine 1.49 H (0.6-1.2) mg/dl Est Cr Clr Drug Dosing 27.0 ml/min Est GFR ( Amer) 40.2 Est GFR (Non-Af Amer) 34.7 BUN/Creatinine Ratio 14.8 (10-20) Glucose 127 H (70-99) mg/dl Calcium 14.0 H* (8.5-10.1) mg/dl Phosphorus 1.9 L (2.5-4.9) mg/dl Magnesium 2.0 (1.8-2.4) mg/dl Total Bilirubin 0.7 (0.2-1) mg/dl AST 92 H (15-37) U/L ALT 58 (12-78) U/L Alkaline Phosphatase 118 H (45-117) U/L Total Protein 8.1 (6.4-8.2) gm/dl Albumin 3.8 (3.4-5.0) gm/dl Globulin 4.3 H (2.5-4.0) gm/dl Albumin/Globulin Ratio 0.9 (0.9-2) Lipase 36 L (73-393) U/L TSH (0.300-4.500) uIu/ml Urine Color Urine Appearance (Clear) Urine pH (4.5-7.5) Ur Specific [place] (1.000-1.030) Urine Protein (Negative) Urine Glucose (UA) (Negative) Urine Ketones (Negative) Urine Blood (Negative) Urine Nitrite (Negative) Urine Bilirubin (Negative) Urine Urobilinogen (Negative) Ur Leukocyte Esterase (Negative) 03/04/19 03/04/19 Range/Units 11:36 11:39 WBC (4.8-10.8) K/uL RBC (4.2-5.4) M/uL Hgb (12.0-16.0) g/dL Hct (37-47) % MCV (80-100) fL MCH (25-34) pg MCHC (32-36) g/dL RDW Std Deviation (36.4-46.3) fL RDW Coeff of Randell (11.5-14.5) % Plt Count (130-400) K/uL MPV (7.4-10.4) fL Immature Gran % (Auto) % Neut % (Auto) % Lymph % (Auto) % [place] % (Auto) % Eos % (Auto) % Baso % (Auto) % Immature Gran # (Auto) (0.00-0.02) K/uL Neut # (Auto) (1.4-6.5) K/uL Lymph # (Auto) (1.2-3.4) K/uL [place] # (Auto) (0.11-0.59) K/uL Eos # (Auto) (0-0.5) K/uL Baso # (Auto) (0-0.2) K/uL Sodium (136-145) mmol/L Potassium (3.5-5.1) mmol/L Chloride (98-107) mmol/L Carbon Dioxide (21-32) mmol/L Anion Gap (3-11) BUN (7-18) mg/dl Creatinine (0.6-1.2) mg/dl Est Cr Clr Drug Dosing ml/min Est GFR ( Amer) Est GFR (Non-Af Amer) BUN/Creatinine Ratio (10-20) Glucose (70-99) mg/dl Calcium (8.5-10.1) mg/dl Phosphorus (2.5-4.9) mg/dl Magnesium (1.8-2.4) mg/dl Total Bilirubin (0.2-1) mg/dl AST (15-37) U/L ALT (12-78) U/L Alkaline Phosphatase (45-117) U/L Total Protein (6.4-8.2) gm/dl Albumin (3.4-5.0) gm/dl Globulin (2.5-4.0) gm/dl Albumin/Globulin Ratio (0.9-2) Lipase (73-393) U/L TSH 0.522 (0.300-4.500) uIu/ml Urine Color Yellow Urine Appearance Clear (Clear) Urine pH 5.0 (4.5-7.5) Ur Specific [place] 1.017 (1.000-1.030) Urine Protein Negative (Negative) Urine Glucose (UA) Negative (Negative) Urine Ketones Negative (Negative) Urine Blood Negative (Negative) Urine Nitrite Negative (Negative) Urine Bilirubin Negative (Negative) Urine Urobilinogen Negative (Negative) Ur Leukocyte Esterase Negative (Negative) Blood Pressure Blood Pressure Findings: Elevated blood pressure Blood Pressure Disposition: further management by hospitalist [facility] John Patient is a 73-year-old female who presents the ER for lumbar puncture sent in by hematology oncology. 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 On exam patient is neurologically intact but does have diffuse arthralgias, weakness, headaches and myalgias. IV was established blood work was obtained. Labs show mild anemia of 11.8. No significant leukocytosis. BMP with a creatinine 1.49. Calcium at 14 and LFTs bilirubin and lipase is unremarkable UA was negative. MRI was reviewed. Based on the findings I do believe this is most consistent with hypercalcemia. This was discussed with hematology oncology and they agree as well. Patient was updated bedside. Patient was given IV fluids and Zometa 4 mg IV. Did not give any Lasix as I want to wait until IV fluids were obtained and the hospitalist will give Lasix once complete. Impression & Plan Hypercalcemia, Myalgia, Arthralgia, Headache Discharge Plan Visit Data *Final* Discharge Date/Time: 03/04/19 15:02 Chief Complaint: Abnormal Labs/Diagnostic Testing Stated Complaint: SENT FROM DOCTOR FOR SPINAL TAP S/P CT OF BRAIN ED Provider: Surinder Seo Discharge Problem: Hypercalcemia, Myalgia, Arthralgia, Headache Patient Disposition: Admitted As Inpatient Discharge Instructions Interventions: ED Discharge Assessment Last Done: 03/04/19 15:02 The scribe's documentation has been prepared under my direction and personally reviewed by me in its entirety. I confirm that the note above accurately reflects all work, treatment, procedures, and medical decision making performed by me.
--- NOTE | 2019-03-04 17:52 | Nephrology Consultation ---
Date of Consultation March 04, 2019 Assessment & Plan (1) Hypercalcemia: Patient with moderate to severe hypercalcemia likely due to malignancy. It is possible she developed acute kidney injury in setting of NSAID use and this exacerbated her hypercalcemia. We will check PTH levels in the morning. Agree with Zometa. I will also start her on calcitonin 200 units q. 8 hourly for 3 doses. Continue normal saline but increase the rate to 150 mL/h. No need for Lasix. Monitor calcium twice daily. I emphasized the need to avoid calcium supplements and vitamin D supplements. She also knows to avoid NSAIDs. We also discussed need to keep well-hydrated. (2) JIMBO (acute kidney injury): Patient with acute kidney injury likely due to NSAID use and hypercalcemia. She is receiving IV fluids. I discussed need for avoiding NSAIDs completely. She should use Tylenol and tramadol. She should also drink enough fluids especially due to hypercalcemia. (3) HTN (hypertension): Blood pressure is above target but could be due to pain. She will likely need Lasix after volume resuscitation. This can be started towards discharge. History of Present Illness Reason for Consultation: Hypercalcemia Requesting Physician: Raul Nevarez MD Attending Physician: Tai Abraham MD History of Present Illness This is a 23-year-old female with history of stage 4 L breast ca (dx 09/2011) s/p radical L mastectomy with mets to bone, b/l adrenal glad and left neck LN s/p XRT (last tx 1.5 month ago) and chemotherapy. recently received palliative xrt to C spine and T12 vertebral body.recent PET 02/07/19 shows new bony mets, no visceral metastatic disease Follows Dr. Chavis oncology. Had been receiving Xgeva q 3 mon last tx 02/26/19. She was admitted on 03/04/2019 with weakness for the past 2 weeks. She was found to have a calcium of 14. She also has a creatinine of 1.4 from a normal baseline of 0.8 in August 2018. Patient reports taking ibuprofen over the past couple of days for pain and headache. She has not been drinking enough fluids. She has progressively become weak. She denied any constipation vomiting or diarrhea. She takes calcium and vitamin D supplements. She does not drink a lot of diarrhea products. In the emergency room she was started on IV fluids, received a dose of Lasix and Zometa. Will been asked to evaluate her for etiology and management of hypercalcemia and acute kidney injury. Seen with and daughter at the bedside. Allergies Allergy/AdvReac Type Severity Reaction Status Date / Time codeine AdvReac Unknown HEADACHE Verified 03/04/19 12:27 Home Medications Home Medications Medication Instructions Recorded Confirmed Type Probiotic 3,000 mmu cells PO QAM 08/23/18 03/04/19 History aspirin 81 mg PO QAM 08/23/18 03/04/19 History ondansetron HCl [Zofran] 8 mg PO TID PRN 08/29/18 03/04/19 History trazodone 50 mg PO HS PRN 08/29/18 03/04/19 History sxcoksa-bxqurjqigbmtw-txrvzvye 2 tab PO Q6H PRN 03/04/19 03/04/19 History [Excedrin Extra Strength] calcium carbonate-vitamin D3 1 tab PO BIDM 03/04/19 03/04/19 History [Caltrate 600 + D] potassium phosphate, monobasic 1,000 mg PO DAILY 03/04/19 03/04/19 History [K-Phos Original] pyridoxine (vitamin B6) [Vitamin 100 mg PO DAILY 03/04/19 03/04/19 History B-6] Patient History Medical History HTN (hypertension) (Chronic) HLD (hyperlipidemia) (Chronic) Breast cancer (Chronic) H/O Clostridium difficile infection (Chronic) C. difficile colitis (Chronic) Diverticulitis (Chronic) SBO (small bowel obstruction) (Resolved) Acute ethmoidal sinusitis (Inactive) Acute maxillary sinusitis (Inactive) Acute sphenoidal sinusitis (Inactive) Metastatic breast cancer (Inactive) Surgical History History of resection of rib (Chronic) cervical rib removal History of bilateral salpingo-oophorectomy (BSO) (Chronic) H/O mastectomy (Chronic) Radical left masectomy History of right hip replacement (Chronic) History of hysterectomy (Resolved) Family History Father , age 69 Coronary heart disease, Onset Age: 40 [place] @ 40 Diabetes Myocardial infarction, Onset Age: 40 Mother Paget disease of bone, Onset Age: 39 Social History Preferred Language: Slovenian Communication Ability: Effective Beliefs That Will Affect Care: None marital status: Current Living Situation: Spouse current occupational status: retired Other Information That Helps Us Care for You: No Feels Safe at Home: Yes Safety Concerns: Feels Safe At This Time Smoking Status: Never smoker Second Hand Exposure: No Hx Alcohol Use: No Hx Substance Use: No Review of Systems Review of Systems: All systems reviewed & are unremarkable except as noted in HPI & below Physical Exam Physical Exam: General exam: Appears comfortable, no acute distress HEENT: Pupils are equal and reactive to light Neck: No JVD, neck is supple trachea is midline Respiratory system: Clear breath sounds bilaterally. Gastrointestinal: Abdomen is soft, non distended, non tender, bowel sounds are present CVS: Regular rate and rhythm. No murmurs, rubs or gallops Musculoskeletal: No joint or muscle tenderness Extremities: Non tender, no edema, peripheral pulses are present Neuro: Oriented, no tremors, no focal neurological deficits Skin: No rashes Results & Data Vital Signs (Past 12 Hours) Vital Signs Temp Pulse Pulse Resp BP BP Pulse Ox 03/04/19 16:49 73 03/04/19 15:49 36.5 C 67 21 163/79 H 99 03/04/19 14:30 71 11 L 174/88 H 98 03/04/19 14:00 62 12 159/71 H 97 03/04/19 13:30 70 17 152/79 H 98 03/04/19 13:01 71 17 99 03/04/19 13:00 70 18 143/72 H 98 03/04/19 12:30 69 15 128/67 98 03/04/19 12:00 70 14 135/65 98 03/04/19 11:38 72 16 98 03/04/19 11:36 73 17 156/68 H 98 03/04/19 10:51 36.8 C 95 H 16 157/79 H 98 Laboratory Results Laboratory Results - last 24 hr 03/04/19 03/04/19 03/04/19 11:36 11:36 11:36 WBC 4.12 L RBC 3.42 L Hgb 11.8 L Hct 33.9 L MCV 99.1 MCH 34.5 H MCHC 34.8 RDW Std Deviation 57.7 H RDW Coeff of Randell 15.8 H Plt Count 144 MPV 9.7 Immature Gran % (Auto) 1.2 Neut % (Auto) 67.7 Lymph % (Auto) 17.5 [place] % (Auto) 10.2 Eos % (Auto) 2.4 Baso % (Auto) 1.0 Immature Gran # (Auto) 0.05 H Neut # (Auto) 2.79 Lymph # (Auto) 0.72 L [place] # (Auto) 0.42 Eos # (Auto) 0.10 Baso # (Auto) 0.04 Sodium 138 Potassium 3.8 Chloride 103 Carbon Dioxide 27 Anion Gap 8.0 BUN 22 H Creatinine 1.49 H Est Cr Clr Drug Dosing 27.0 Est GFR ( Amer) 40.2 Est GFR (Non-Af Amer) 34.7 BUN/Creatinine Ratio 14.8 Glucose 127 H Calcium 14.0 H* Phosphorus 1.9 L Magnesium 2.0 Total Bilirubin 0.7 AST 92 H ALT 58 Alkaline Phosphatase 118 H Total Protein 8.1 Albumin 3.8 Globulin 4.3 H Albumin/Globulin Ratio 0.9 Lipase 36 L TSH Urine Color Urine Appearance Urine pH Ur Specific [place] Urine Protein Urine Glucose (UA) Urine Ketones Urine Blood Urine Nitrite Urine Bilirubin Urine Urobilinogen Ur Leukocyte Esterase 03/04/19 03/04/19 11:36 11:39 WBC RBC Hgb Hct MCV MCH MCHC RDW Std Deviation RDW Coeff of Randell Plt Count MPV Immature Gran % (Auto) Neut % (Auto) Lymph % (Auto) [place] % (Auto) Eos % (Auto) Baso % (Auto) Immature Gran # (Auto) Neut # (Auto) Lymph # (Auto) [place] # (Auto) Eos # (Auto) Baso # (Auto) Sodium Potassium Chloride Carbon Dioxide Anion Gap BUN Creatinine Est Cr Clr Drug Dosing Est GFR ( Amer) Est GFR (Non-Af Amer) BUN/Creatinine Ratio Glucose Calcium Phosphorus Magnesium Total Bilirubin AST ALT Alkaline Phosphatase Total Protein Albumin Globulin Albumin/Globulin Ratio Lipase TSH 0.522 Urine Color Yellow Urine Appearance Clear Urine pH 5.0 Ur Specific [place] 1.017 Urine Protein Negative Urine Glucose (UA) Negative Urine Ketones Negative Urine Blood Negative Urine Nitrite Negative Urine Bilirubin Negative Urine Urobilinogen Negative Ur Leukocyte Esterase Negative
[2019-03-04] MEDS: CALCITONIN SALMON 200 UNITS in SYRINGE 0 ML SQ SCH (18:23)
[2019-03-04 20:06] LABS: BUN Creatinine Ratio 16.2 (10-20); Calcium 12.3 mg/dl (8.5-10.1); Creatinine Clr Calc Pharmacy 29.8 ml/min; Est GFR (African American) 45.3; Est GFR (Non-African American) 39.1; Potassium 3.5 mmol/L (3.5-5.1)
[2019-03-04] MEDS: ONDANSETRON INJ 2 MG/ML 2 ML VIAL IV PRN (20:52)
[2019-03-05] MEDS: CALCITONIN SALMON 200 UNITS in SYRINGE 0 ML SQ SCH ×2 (02:00→10:30)
[2019-03-05] MEDS: SODIUM CHLORIDE 0.9% 1000ML 1,000 ML IV SCH ×3 (06:13→19:52)
[2019-03-05 07:51] LABS: Mean Corpuscular Hgb Conc 34.6 g/dL (32-36); Mean Corpuscular Volume 97.4 fL (80-100); Mean Platelet Volume 9.5 fL (7.4-10.4); Platelet Count 130 K/uL (130-400); RDW Coefficient of Variation 15.9 % (11.5-14.5); RDW Standard Deviation 56.4 fL (36.4-46.3); Red Blood Count 2.67 M/uL (4.2-5.4); White Blood Count 4.76 K/uL (4.8-10.8)
[2019-03-05 08:03] LABS: INR 1.1 (0.9-1.1); Prothrombin Time 10.9 Seconds (9.0-12.0)
[2019-03-05] MEDS: PYRIDOXINE HCL 50 MG TAB PO SCH (08:16)
[2019-03-05] MEDS: LACTOBACILLUS ACIDOPHILUS (FLORANEX) TAB PO SCH (08:16)
[2019-03-05] MEDS: ASPIRIN 81 MG ECTAB PO SCH (08:16)
[2019-03-05 08:23] LABS: BUN Creatinine Ratio 18.5 (10-20); Calcium 11.4 mg/dl (8.5-10.1); Creatinine Clr Calc Pharmacy 36.6 ml/min; Est GFR (African American) 58.1; Est GFR (Non-African American) 50.1; Potassium 3.6 mmol/L (3.5-5.1)
[2019-03-05] MEDS: ENOXAPARIN INJ 30 MG/0.3 ML SYR SQ SCH (10:29)
[2019-03-05] MEDS: ONDANSETRON INJ 2 MG/ML 2 ML VIAL IV PRN ×2 (10:33→16:34)
--- NOTE | 2019-03-05 11:20 | Hospitalist Progress Note ---
Date of Service March 05, 2019 Assessment & Plan (1) Hypercalcemia: Pt presented with BARNES, myalgias, weakness, fatigue. In ER was found to have Ca: 14.0. She received IV fluids and Zometa 4 mg IV in ED. Also received lasix 40mg IV Hypercalcemia likely secondary to malignancy, JIMBO 03/05/19 Ca: 11.4, ionized Ca: 1.46, PTH: 17.6 -NSS at 150ml/hr -Avoid NSAIDs -Nephrology consult, appreciate recommendations * Started calcitonin 200 units q. 8 hourly for 3 doses * No need for Lasix * Monitor calcium twice daily * Avoid calcium supplements and vitamin D supplements * Keep well-hydrated -Case was discussed with Dr Chavis oncology on 03/04/19 who recommended treatment of hypercalcemia as was likely etiology of symptoms. Pt had MRI 03/02/19 revealed Interval enlargement of the pituitary gland and the pituitary infundibulum, nonspecific. The findings are somewhat suspicious for metastatic disease. Dr. Chavis recommended holding off of LP for now as this can be done outpatient unless she clinically doesn't improve (2) Breast cancer: H/O Stage 4 L breast ca (dx 09/2011) s/p radical L mastectomy with mets to bone, b/l adrenal glad and left neck LN s/p XRT (last tx 1.5 month ago) and chemo. Hormone refractory disease. Recently received palliative xrt to C spine and T12 vertebral body Recent PET 02/07/19 shows new bony mets, no visceral metastatic disease Follows Dr. Chavis oncology Had been receiving Xgeva Q 3 month, last tx 02/26/19 Planning to start systemic Abraxane once port established - pt is to meet with Dr. Chowdhury on 03/06/19 at 12:30 at [facility] for discussion port placement (3) CKD (chronic kidney disease), stage III: Baseline Cr 1.1 03/05/19: Cr: 1.1 from 1.35 on 03/04/19 Likely JIMBO on CKD III secondary to NSAIDs, hypercalcemia, dehydration -On IVF -Nephrology consult, appreciate recommendations -Avoid NSAIDs (4) HTN (hypertension): Blood pressure was elevated yesterday Today BP 120/76 -Monitor BP (5) DVT prophylaxis: Lovenox 30mg SQ (due to renal impairment and weight) Disposition: anticipated discharge home when able Follow up: PCP Harleen Gonzalez PA-C. Will need repeat calcium levels on for follow up Hematology/Oncology Dr. Chavis Nephrology follow up in 2 weeks Patient was seen and examined in collaboration with Dr. Abraham, please see addendum. Supervising Physician Co-Signing Physician Notes Pt was seen and examined. Agreed with Gloria GELLER exam assessment and plan. Pt said that she feels a little better . She said that her vomiting stopped but she continue to feel nauseated. She said that she does have low appetite. Her strength improves. Denies any chest pain, palpitation and SOB. Ca dropped to 11.4 today. Case discussed with Nephrology recommended to continue IV hydration and Zometa. Advised pt to avoid calcium supplements and vitamin D supplements. Electrolytes replaced. Will give zofran 30 minutes before eating to see if that will help the patient with the nausea and help her to eat. Will send a note to Dr. Chowdhury tomorrow since pt has an appointment with him to get eval for Aport placement for chemo as per family request. Please refer to Gloria GELLER documentation for other problems. MD Jarad Subjective Pt seen and examined. Sitting up in bed State vomited twice last night. Pt reports some nausea this morning. Ate small amount of cereal this morning and has retained. Is drinking fluids and eating ice chips. Reports less BARNES and a little less fatigue today than yesterday. Denies fever/chills, diaphoresis, dizziness, syncope, vision changes, neck pain, CP, SOB, orthopnea, palpitations, cough, sore throat, choking, otalgia, rhinorrhea, abdominal pain, paresthesias, extremity edema, rashes, urinary symptoms. Physical Exam Physical Exam: General: no acute distress, chronic ill appearing Head: normocephalic, atraumatic Eyes: PERRL, EOM's intact, conjunctiva non-injected, anicteric ENT: normal inspection external ears, nose, mucous membranes moist Neck: supple, trachea midline Lungs: clear, no respiratory distress, no wheezing/rhonchi/rales CV: RRR, no murmur,no pretibial edema Abd: normal BS, soft, non-tender Ext: no cyanosis, no calf tenderness Neuro: A&O x 3, no focal deficits noted, normal affect Skin: warm, dry Results & Data Vital Signs (Past 12 Hours) Vital Signs Temp Pulse Pulse Resp BP BP Pulse Ox 03/05/19 10:00 67 03/05/19 07:18 36.4 C L 71 18 120/76 97 03/05/19 05:01 37.2 C 68 20 118/56 L 97 03/04/19 23:45 79 03/04/19 23:38 36.9 C 72 20 106/61 72 L Laboratory Results Short CBC 03/04/19 03/05/19 Range/Units 11:36 07:27 WBC 4.12 L 4.76 L (4.8-10.8) K/uL Hgb 11.8 L 9.0 L (12.0-16.0) g/dL Hct 33.9 L 26.0 L (37-47) % Plt Count 144 130 (130-400) K/uL BMP 03/04/19 03/04/19 03/05/19 11:36 19:30 07:27 Sodium 138 140 141 Potassium 3.8 3.5 3.6 Chloride 103 107 109 H Carbon Dioxide 27 24 25 BUN 22 H 22 H 20 H Creatinine 1.49 H 1.35 H 1.10 Glucose 127 H 103 H 105 H Calcium 14.0 H* 12.3 H* 11.4 H Liver Function 03/04/19 Range/Units 11:36 Total Bilirubin 0.7 (0.2-1) mg/dl AST 92 H (15-37) U/L ALT 58 (12-78) U/L Alkaline Phosphatase 118 H (45-117) U/L Albumin 3.8 (3.4-5.0) gm/dl Urine 03/04/19 Range/Units 11:39 Urine Color Yellow Urine Appearance Clear (Clear) Urine pH 5.0 (4.5-7.5) Ur Specific [place] 1.017 (1.000-1.030) Urine Protein Negative (Negative) Urine Glucose (UA) Negative (Negative)
--- NOTE | 2019-03-05 15:22 | Nephrology Progress Note ---
Date of Service March 05, 2019 Assessment & Plan (1) Hypercalcemia: Patient with moderate to severe hypercalcemia likely due to malignancy. It is possible she developed acute kidney injury in setting of NSAID use and this exacerbated her hypercalcemia. PTH is suppressed appropriately which is consistent with hypercalcemia of malignancy. Agree with Zometa. Calcium is better at 11.4 today. Continue normal saline. No need for Lasix. Monitor calcium twice daily. I emphasized the need to avoid calcium supplements and vitamin D supplements. She also knows to avoid NSAIDs. We also discussed need to keep well-hydrated. If nausea improves, patient can be discharged and can be followed by hematology and nephrology for hypercalcemia. She will need repeat BMP on Monday or Monday. (2) JIMBO (acute kidney injury): Patient with acute kidney injury likely due to NSAID use and hypercalcemia. She is receiving IV fluids. Creatinine is better at 1.1. I discussed need for avoiding NSAIDs completely. She should use Tylenol and tramadol. She should also drink enough fluids especially due to hypercalcemia. (3) HTN (hypertension): Blood pressure is above target but could be due to pain. No need to lower blood pressure with medications. Control pain and nausea. Subjective Patient seen in follow-up for hypercalcemia. She is complaining of nausea and morning. She does not feel like eating. No urinary symptoms such as dysuria or hematuria. Calcium with downtrending to 11 this morning. She continues on IV normal saline.. Review of Systems Review of Systems: All systems reviewed & are unremarkable except as noted in HPI & below Physical Exam Physical Exam: General exam: Appears comfortable, no acute distress HEENT: Pupils are equal and reactive to light Neck: No JVD, neck is supple trachea is midline Respiratory system: Clear breath sounds bilaterally. Gastrointestinal: Abdomen is soft, non distended, non tender, bowel sounds are present CVS: Regular rate and rhythm. No murmurs, rubs or gallops Musculoskeletal: No joint or muscle tenderness Extremities: Non tender, no edema, peripheral pulses are present Neuro: Oriented, no tremors, no focal neurological deficits Skin: No rashes Results & Data Vital Signs (Past 12 Hours) Vital Signs Temp Pulse Pulse Resp BP BP Pulse Ox 03/05/19 14:43 37.1 C 81 20 152/66 H 97 03/05/19 11:49 36.7 C 69 18 153/68 H 100 03/05/19 10:00 67 03/05/19 07:18 36.4 C L 71 18 120/76 97 03/05/19 05:01 37.2 C 68 20 118/56 L 97 Laboratory Results Laboratory Results - last 24 hr 03/04/19 03/04/19 03/04/19 11:36 19:09 19:09 WBC RBC Hgb Hct MCV MCH MCHC RDW Std Deviation RDW Coeff of Randell Plt Count MPV PT INR Sodium Potassium Chloride Carbon Dioxide Anion Gap BUN Creatinine Est Cr Clr Drug Dosing Est GFR ( Amer) Est GFR (Non-Af Amer) BUN/Creatinine Ratio Glucose Calcium Ionized Calcium Vit D 1,25-Dihyd Total Pending 1,25 Dihydroxy Vit D2 Pending 1,25 Dihydroxy Vit D3 Pending TSH 0.522 PTH Intact 17.6 L PTH Related Protein Pending 03/04/19 03/04/19 03/05/19 19:09 19:30 07:27 WBC 4.76 L RBC 2.67 L Hgb 9.0 L Hct 26.0 L MCV 97.4 MCH 33.7 MCHC 34.6 RDW Std Deviation 56.4 H RDW Coeff of Randell 15.9 H Plt Count 130 MPV 9.5 PT INR Sodium 140 Potassium 3.5 Chloride 107 Carbon Dioxide 24 Anion Gap 9.0 BUN 22 H Creatinine 1.35 H Est Cr Clr Drug Dosing 29.8 Est GFR ( Amer) 45.3 Est GFR (Non-Af Amer) 39.1 BUN/Creatinine Ratio 16.2 Glucose 103 H Calcium 12.3 H* Ionized Calcium 1.59 H* Vit D 1,25-Dihyd Total 1,25 Dihydroxy Vit D2 1,25 Dihydroxy Vit D3 TSH PTH Intact PTH Related Protein 03/05/19 03/05/19 03/05/19 07:27 07:27 07:27 WBC RBC Hgb Hct MCV MCH MCHC RDW Std Deviation RDW Coeff of Randell Plt Count MPV PT 10.9 INR 1.1 Sodium 141 Potassium 3.6 Chloride 109 H Carbon Dioxide 25 Anion Gap 6.0 BUN 20 H Creatinine 1.10 Est Cr Clr Drug Dosing 36.6 Est GFR ( Amer) 58.1 Est GFR (Non-Af Amer) 50.1 BUN/Creatinine Ratio 18.5 Glucose 105 H Calcium 11.4 H Ionized Calcium 1.46 H Vit D 1,25-Dihyd Total 1,25 Dihydroxy Vit D2 1,25 Dihydroxy Vit D3 TSH PTH Intact PTH Related Protein
[2019-03-05] MEDS ORDERED: ZOLPIDEM TARTRATE 5 MG TAB PO PRN ×2 (16:45→18:40)
[2019-03-05 17:06] LABS: BUN Creatinine Ratio 14.2 (10-20); Calcium 11.2 mg/dl (8.5-10.1); Creatinine Clr Calc Pharmacy 38.3 ml/min; Est GFR (African American) 61.4; Magnesium 1.5 mg/dl (1.8-2.4); Potassium 3.6 mmol/L (3.5-5.1)
[2019-03-05 17:26] LABS: Phosphorus 0.8 mg/dl (2.5-4.9)
[2019-03-05] MEDS ORDERED: POTASSIUM PHOS 3 MMOL/1 ML INFUSION IV ONE (18:00)
[2019-03-05] MEDS: ACETAMINOPHEN 325 MG TAB PO PRN (18:06)
[2019-03-05] MEDS ORDERED: POTASSIUM PHOSPHATE 24 MMOL in SODIUM CHLORIDE 0.9% 500 ML IV ONE (18:15)
[2019-03-05] MEDS ORDERED: MAGNESIUM SULFATE / D5W 1 GM/100 ML BAG IV ONE (19:00)
[2019-03-06] MEDS: SODIUM CHLORIDE 0.9% 1000ML 1,000 ML IV SCH ×2 (02:37→09:21)
[2019-03-06] MEDS: ONDANSETRON INJ 2 MG/ML 2 ML VIAL IV PRN ×2 (06:43→12:22)
[2019-03-06 07:32] LABS: Hematocrit (blood only) 24.5 % (37-47); Hemoglobin 8.6 g/dL (12.0-16.0); Mean Corpuscular Hgb Conc 35.1 g/dL (32-36); Mean Corpuscular Volume 98.8 fL (80-100); Mean Platelet Volume 9.5 fL (7.4-10.4); Platelet Count 126 K/uL (130-400); RDW Coefficient of Variation 15.4 % (11.5-14.5); RDW Standard Deviation 56.2 fL (36.4-46.3); Red Blood Count 2.48 M/uL (4.2-5.4); White Blood Count 5.15 K/uL (4.8-10.8)
[2019-03-06 08:02] LABS: BUN Creatinine Ratio 12.1 (10-20); Calcium 9.5 mg/dl (8.5-10.1); Creatinine Clr Calc Pharmacy 50.9 ml/min; Est GFR (African American) 86.7; Est GFR (Non-African American) 74.8; Magnesium 1.7 mg/dl (1.8-2.4); Potassium 3.4 mmol/L (3.5-5.1)
[2019-03-06] MEDS: PYRIDOXINE HCL 50 MG TAB PO SCH (08:11)
[2019-03-06] MEDS: ENOXAPARIN INJ 30 MG/0.3 ML SYR SQ SCH (08:11)
[2019-03-06] MEDS: LACTOBACILLUS ACIDOPHILUS (FLORANEX) TAB PO SCH (08:11)
[2019-03-06] MEDS: ASPIRIN 81 MG ECTAB PO SCH (08:11)
[2019-03-06] MEDS ORDERED: MAGNESIUM SULFATE / D5W 1 GM/100 ML BAG IV ONE (08:43)
[2019-03-06] MEDS ORDERED: POTASSIUM PHOS 3 MMOL/1 ML INFUSION IV STA (08:43)
[2019-03-06] MEDS ORDERED: POTASSIUM PHOSPHATE 24 MMOL in SODIUM CHLORIDE 0.9% 500 ML IV ONE (09:30)
--- NOTE | 2019-03-06 10:42 | Hospitalist Progress Note ---
Date of Service March 06, 2019 Assessment & Plan (1) Hypercalcemia: Hypercalcemia likely secondary to malignancy, JIMBO Pt presented with BARNES, myalgias, weakness, fatigue. Initial presentation on 03/04/19 was found to have Ca: 14.0. She received IV fluids and Zometa 4 mg IV, lasix 40mg IV at that time. Pt with continued fatigue, decreased nausea with zofran use. 03/05/19 Ca: 11.4, ionized Ca: 1.46, PTH: 17.6 03/06/19: Ca WNL at 9.5 -On NSS at 150ml/hr -Avoid NSAIDs -Nephrology consult, appreciate recommendations * Had calcitonin 200 units q. 8 hourly for 3 doses, completed on 03/05/19 * No need for further Lasix * Avoid calcium supplements and vitamin D supplements * Keep well-hydrated -Case was discussed with Dr Chavis oncology on 03/04/19 who recommended treatment of hypercalcemia as was likely etiology of symptoms. Pt had MRI 03/02/19 revealed Interval enlargement of the pituitary gland and the pituitary infundibulum, nonspecific. The findings are somewhat suspicious for metastatic disease. Dr. Chavis had recommended holding off of LP for now as this can be done outpatient unless she clinically doesn't improve (2) CKD (chronic kidney disease), stage III: Baseline Cr 1.1 03/06/19: Cr: 0.79 from Cr: 1.35 on 03/04/19 Likely JIMBO on CKD III secondary to NSAIDs, hypercalcemia, dehydration -On IVF -Nephrology consulted, appreciate recommendations -Avoid NSAIDs (3) Hypomagnesemia: Pt with poor oral intake secondary to nausea. 03/05/19: Magnesium: 1.5. Had received magnesium sulfate 1gm IV 03/06/19 magnesium: 1.7. Magnesium sulfate 1mg IV ordered -Magnesium 400mg po BID ordered to start 03/06/19 -Monitor (4) Hypophosphatemia: 03/05/19: Phosphorus: 0.8. Pt received 24mmol potassium phos 03/06/19: Phosphorus: 1.0. Potassium phos 24mmol IV ordered -Potassium Phosphate 2 tab TID ordered to start today by nephrology -Monitor (5) Breast cancer: H/O Stage 4 L breast ca (dx 09/2011) s/p radical L mastectomy with mets to bone, b/l adrenal glad and left neck LN s/p XRT (last tx 1.5 month ago) and chemo. Hormone refractory disease. Recently received palliative xrt to C spine and T12 vertebral body Recent PET 02/07/19 shows new bony mets, no visceral metastatic disease Follows Dr. Chavis oncology Had been receiving Xgeva Q 3 month, last tx 02/26/19 Planning to start systemic Abraxane once port established - Pt had appt scheduled with Dr. Chowdhury on 03/06/19 at 12:30 at [facility] for discussion port placement. -Dr Chowdhury was contacted and informed pt was still in hospital and he recommends out patient follow up -Appt already re-scheduled by pt's daughter for 03/13/[address] Ruiz (6) HTN (hypertension): BP variable with SBP 120's-140's Probable secondary to discomfort, nausea -Monitor BP (7) DVT prophylaxis: Lovenox SQ Disposition: anticipated discharge home when electrolytes stabilized Follow up: PCP Harleen Gonzalez PA-C. Will need repeat labs on 03/08/19 or 03/11/19 for follow up Hematology/Oncology Dr. Chavis Nephrology follow up in 2 weeks General surgery appt on 03/13/19 at 1:[address] Ruiz for port placement consultation Patient was seen and examined in collaboration with Dr. Abraham, please see addendum. Supervising Physician Co-Signing Physician Notes Pt was seen and examined. Agreed with Gloria GELLER exam, assessment and plan. Pt said that she feels slightly better. Her calcium improves today. Nephrology on board an recommended calcitonin x3 dose only. Continue IV fluid. Electrolytes replaced. Continue monitor electrolytes. Discussed case with oncology Dr. Chavis who will follow as an outpatient. Will check BMP, mg and phos outpatient. MD Jarad Subjective Pt seen and examined. Sitting up on edge of bed States no further vomiting. Had some nausea last night. Last night ate couple of bites of potatoes and pork chop. states this am had tea and small amount of melon and retained. C/O continued fatigue, slightly improved from admission. Denies fever/chills, diaphoresis, dizziness, syncope, vision changes, BARNES, neck pain, CP, SOB, orthopnea, palpitations, cough, sore throat, choking, otalgia, rhinorrhea, abdominal pain, paresthesias, extremity edema, rashes, urinary symptoms. Physical Exam Physical Exam: General: no acute distress, chronic ill appearing Head: normocephalic, atraumatic Eyes: PERRL, EOM's intact, conjunctiva non-injected, anicteric ENT: normal inspection external ears, nose, mucous membranes moist Neck: supple, trachea midline Lungs: clear, no respiratory distress, no wheezing/rhonchi/rales CV: RRR, no murmur,no pretibial edema Abd: normal BS, soft, non-tender Ext: no cyanosis, no calf tenderness Neuro: A&O x 3, no focal deficits noted, normal affect Skin: warm, dry Results & Data Vital Signs (Past 12 Hours) Vital Signs Temp Pulse Pulse Resp BP Pulse Ox 03/06/19 07:04 37.5 C 77 18 147/72 H 96 03/06/19 03:45 37.0 C 77 16 141/65 H 97 03/06/19 00:30 66 03/05/19 23:06 37.0 C 70 20 115/57 L 95 Laboratory Results Short CBC 03/06/19 Range/Units 07:12 WBC 5.15 (4.8-10.8) K/uL Hgb 8.6 L (12.0-16.0) g/dL Hct 24.5 L (37-47) % Plt Count 126 L (130-400) K/uL BMP 03/05/19 03/06/19 16:23 07:12 Sodium 140 141 Potassium 3.6 3.4 L Chloride 112 H 115 H Carbon Dioxide 19 L 18 L BUN 15 10 D Creatinine 1.05 0.79 Glucose 105 H 83 Calcium 11.2 H 9.5 D
[2019-03-06] MEDS: ACETAMINOPHEN 325 MG TAB PO PRN (12:22)
--- NOTE | 2019-03-06 13:19 | Nephrology Progress Note ---
Date of Service March 06, 2019 Assessment & Plan (1) Hypercalcemia: Patient with moderate to severe hypercalcemia likely due to malignancy. It is possible she developed acute kidney injury in setting of NSAID use and this exacerbated her hypercalcemia. PTH is suppressed appropriately which is consistent with hypercalcemia of malignancy. Agree with Zometa. Calcium is better at 9.5 today. Stop normal saline. No need for Lasix. Monitor calcium daily. I emphasized the need to avoid calcium supplements and vitamin D supplements. She also knows to avoid NSAIDs. We also discussed need to keep well-hydrated. Patient can be discharged and can be followed by hematology and nephrology for hypercalcemia. She will need repeat BMP on Monday or Monday. (2) JIMBO (acute kidney injury): Patient with acute kidney injury likely due to NSAID use and hypercalcemia. She is receiving IV fluids. Creatinine is better at 1.1. I discussed need for avoiding NSAIDs completely. She should use Tylenol and tramadol. She should also drink enough fluids especially due to hypercalcemia. (3) HTN (hypertension): Blood pressure is above target but could be due to pain. No need to lower blood pressure with medications. Control pain and nausea. 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 Agree with IV supplements. She will need a oral potassium phosphate 2 tabs twice daily and patient can continue the same after discharge. (5) Hypomagnesemia: Will give magnesium oxide 400 mg twice daily. Side effects were discussed including diarrhea. Subjective Patient seen in follow-up for hypercalcemia and hyperphosphatemia. She feels better this morning no nausea or vomiting. Calcium is better at 9.5. Seen with at the bedside. All questions answered Review of Systems Review of Systems: All systems reviewed & are unremarkable except as noted in HPI & below Physical Exam Physical Exam: General exam: Appears comfortable, no acute distress HEENT: Pupils are equal and reactive to light Neck: No JVD, neck is supple trachea is midline Respiratory system: Clear breath sounds bilaterally. Gastrointestinal: Abdomen is soft, non distended, non tender, bowel sounds are present CVS: Regular rate and rhythm. No murmurs, rubs or gallops Musculoskeletal: No joint or muscle tenderness Extremities: Non tender, no edema, peripheral pulses are present Neuro: Oriented, no tremors, no focal neurological deficits Skin: No rashes Results & Data Vital Signs (Past 12 Hours) Vital Signs Temp Pulse Resp BP BP Pulse Ox 03/06/19 12:00 37.3 C 68 19 145/71 H 97 03/06/19 07:04 37.5 C 77 18 147/72 H 96 03/06/19 03:45 37.0 C 77 16 141/65 H 97 Laboratory Results Laboratory Results - last 24 hr 03/05/19 03/06/19 03/06/19 16:23 07:12 07:12 WBC 5.15 RBC 2.48 L Hgb 8.6 L Hct 24.5 L MCV 98.8 MCH 34.7 H MCHC 35.1 RDW Std Deviation 56.2 H RDW Coeff of Randell 15.4 H Plt Count 126 L MPV 9.5 Sodium 140 141 Potassium 3.6 3.4 L Chloride 112 H 115 H Carbon Dioxide 19 L 18 L Anion Gap 9.0 8.0 BUN 15 10 D Creatinine 1.05 0.79 Est Cr Clr Drug Dosing 38.3 50.9 Est GFR ( Amer) 61.4 86.7 Est GFR (Non-Af Amer) 53.0 74.8 BUN/Creatinine Ratio 14.2 12.1 Glucose 105 H 83 Calcium 11.2 H 9.5 D Phosphorus 0.8 L* D 1.0 L* Magnesium 1.5 L 1.7 L
[2019-03-06] MEDS ORDERED: POT PHOSPHATE MONOBASIC W/ SOD TAB PO SCH (14:00)
--- NOTE | 2019-03-06 16:24 | Discharge Summary ---
Date of Service March 06, 2019 Admission HPI Per Admitting Provider This is a 73-year-old female who has a significant past medical history of stage IV breast cancer with mets to bone status post radiation and chemo, CKD stage III, history of C. difficile who presents to [facility] secondary to weakness and fatigue for approximately 3 weeks. Patient states over the past 3 weeks she has been getting progressive weakness and fatigue to the point she is unable to, "do anything." She complains of difficulty walking stairs or do ADLs. She has never experienced this in the past. She further elicits to being lightheaded, dyspnea on exertion, constipation. She does have a noted weight loss of approximately 16 pounds in the past several months given her active cancer. She denies any fever, chills, sweats, syncope or presyncope, dizziness, chest pain, palpitations, shortness breath at rest, hemoptysis, nausea, vomiting, abdominal pain, diarrhea, dysuria, hematuria, increased urgency or frequency with urination. She further denies any melena or hematochezia. She has been taking MiraLAX x1 for her difficulty moving bowels. Of note patient was seen on 02/26 for an Xgeva injection but it was noted her calcium to be 11.8. She was given IV fluid x1 at that time. Also of note patient had an MRI on 03/02 which revealed enlarged pituitary gland questionable suspicion for metastatic disease recommending LP. Patient had called into her oncologist Dr. Chavis who recommended she seek ER evaluation for possible LP given her symptoms. However, in ED patient's calcium was noted to be 14.0, BUN 22, creatinine 1.49, WBC 4.12, hemoglobin 9.8, hematocrit 33.9, platelet 144. ER physician contacted Dr. Chavis who recommended treating the hypercalcemia and holding off on LP as it is felt her symptoms are likely secondary to symptomatic hypercalcemia. She received IV fluid as well as 4 mg IV zoledronic acid while in ED. Admission Exam Per Admitting Provider Gen: Petite, Thin, F, NAD, sitting up in bed, pleasant, conversing easily Head: Normocephalic, Atraumatic Eyes: Sclera normal, no conjunctival injection, PERRLA, EOMI ENT: Gross hearing intact, normal pharynx, mucous membranes moist Neck: supple, no adenopathy, No JVD, no bruit, Resp: Clear to auscultation b/l, no wheeze, rales, rhonchi. Normal insp/exp effort, no accessory muscle use CV: Regular rate, regular rhythm, no murmur, rub, gallop, or ectopy Abd: +BS x 4, soft, nontender, nondistended Musculoskeletal: moves extremities active rom x 4, strength intact, good sleep scientist strength Extremities: No edema bilaterally Skin: warm, moist, no rash, negative turgor, cap refill < 2sec Neuro: Alert and oriented x 3, speech normal, good mood/affect, cran nerve 2-12 intact grossly : deferred Principal Diagnosis Hypercalcemia Discharge Exam General: no acute distress, chronic ill appearing Head: normocephalic, atraumatic Eyes: PERRL, EOM's intact, conjunctiva non-injected, anicteric ENT: normal inspection external ears, nose, mucous membranes moist Neck: supple, trachea midline Lungs: clear, no respiratory distress, no wheezing/rhonchi/rales CV: RRR, no murmur,no pretibial edema Abd: normal BS, soft, non-tender Ext: no cyanosis, no calf tenderness Neuro: A&O x 3, no focal deficits noted, normal affect Skin: warm, dry Discharge Data Allergies Allergy/AdvReac Type Severity Reaction Status Date / Time codeine AdvReac Unknown HEADACHE Verified 03/04/19 12:27 Consultations Consult Nephrology - Dr Valdes: (1) HYPERCALCEMIA: Patient with moderate to severe hypercalcemia likely due to malignancy. It is possible she developed acute kidney injury in setting of NSAID use and this exacerbated her hypercalcemia. PTH is suppressed appropriately which is consistent with hypercalcemia of malignancy. Agree with Zometa. Calcium is better at 9.5 today. Stop normal saline. No need for Lasix. Monitor calcium daily. I emphasized the need to avoid calcium supplements and vitamin D supplements. She also knows to avoid NSAIDs. We also discussed need to keep well-hydrated. Patient can be discharged and can be followed by hematology and nephrology for hypercalcemia. She will need repeat BMP on Monday or Monday. (2) JIMBO (acute kidney injury): Patient with acute kidney injury likely due to NSAID use and hypercalcemia. She is receiving IV fluids. Creatinine is better at 1.1. I discussed need for avoiding NSAIDs completely. She should use Tylenol and tramadol. She should also drink enough fluids especially due to hypercalcemia. (3) HTN (hypertension): Blood pressure is above target but could be due to pain. No need to lower blood pressure with medications. Control pain and nausea. 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 Agree with IV supplements. She will need a oral potassium phosphate 2 tabs twice daily and patient can continue the same after discharge. (5) Hypomagnesemia: Will give magnesium oxide 400 mg twice daily. Side effects were discussed including diarrhea. Ordered Studies Short CBC 03/04/19 03/05/19 03/06/19 Range/Units 11:36 16:23 07:12 WBC 5.15 (4.8-10.8) K/uL Hgb 8.6 L (12.0-16.0) g/dL Hct 24.5 L (37-47) % Plt Count 126 L (130-400) K/uL Phosphorus 1.9 L 0.8 L* D (2.5-4.9) mg/dl Magnesium 2.0 1.5 L (1.8-2.4) mg/dl 03/06/19 03/06/19 Range/Units 07:12 16:01 WBC (4.8-10.8) K/uL Hgb (12.0-16.0) g/dL Hct (37-47) % Plt Count (130-400) K/uL Phosphorus 1.0 L* 3.1 D (2.5-4.9) mg/dl Magnesium 1.7 L 1.8 (1.8-2.4) mg/dl BMP 03/05/19 03/06/19 03/06/19 16:23 07:12 16:01 Sodium 140 141 139 Potassium 3.6 3.4 L 3.2 L Chloride 112 H 115 H 113 H Carbon Dioxide 19 L 18 L 18 L BUN 15 10 D 7 Creatinine 1.05 0.79 0.82 Glucose 105 H 83 78 Calcium 11.2 H 9.5 D 8.9 Hospital Course (1) Hypercalcemia: Hypercalcemia likely secondary to malignancy, JIMBO Pt presented with BARNES, myalgias, weakness, fatigue. Initial presentation on 03/04/19 was found to have Ca: 14.0. She received IV fluids and Zometa 4 mg IV, lasix 40mg IV at that time. Treated with IVF. Nephrology consulted and pt was given calcitonin 200 units Q8H for 3 doses and completed on 03/05/19. Calcium level returned to normal limits on 03/06/19 with level of 8.9. Pt reports some decreased nausea and fatigue. Case was initially discussed with Dr Chavis as pt had MRI 03/02/19 which revealed interval enlargement of the pituitary gland and the pituitary infundibulum and there was suspicion for metastatic disease. Dr. Chavis had recommended holding off of LP in patient as hypercalcemia was likely etiology for symptoms and LP can be done outpatient. Pt is to Avoid calcium supplements, avoid NSAIDs. Is to keep well hydrated. Pt to have repeat labs on 03/08/19 and 03/11/19 for monitoring. (2) CKD (chronic kidney disease), stage III: Initial presentation with Cr of 1.35 which downtrended to 0.79 on 03/06/19 after IVF. Baseline Cr 1.1. Likely JIMBO on CKD III secondary to NSAIDs, hypercalcemia, dehydration. Nephrology was consulted. Pt to avoid NSAIDs. (3) Hypomagnesemia: Hypomagnesemia with low of 1.5 on 03/05/19. Received IV magnesium sulfate. Magnesium oxide 400 mg po twice daily started. Magnesium WNL at 1.8 on 03/06/19. Pt to continue magnesium oxide 400mg po BID upon discharge (4) Hypophosphatemia: Pt with hypophosphatemia with phosphorus as low as 0.8 on 03/05/19. Received IV potassium phosphorus on 03/05/19 & 03/06/19. Potassium Phosphate 2 tab po BID was also started per by nephrology and hypophosphatemia thought likely due to phosphorus wasting likely from PTH related peptide. Phosphorus level up to 3.1 on 03/06/19. Recommended pt be discharged home on oral potassium phosphate 2 tabs twice daily (5) Breast cancer: H/O Stage 4 L breast ca (dx 09/2011) s/p radical L mastectomy with mets to bone, b/l adrenal glad and left neck LN s/p XRT (last tx 1.5 month ago) and chemo. Hormone refractory disease. Recently received palliative xrt to C spine and T12 vertebral body. Recent PET 02/07/19 shows new bony mets, no visceral metastatic disease. Follows Dr. Chavis oncology. Had been receiving Xgeva Q 3 month, last tx 02/26/19. Pt was to have appt with Dr. Chowdhury on 03/06/19 at 12:30 at [facility] for discussion port placement, however still in hospital. Dr Chowdhury was contacted and recommends out patient follow up for rescheduling appointment. Appointment re-scheduled for 03/13/19 at 1:[address] Ruiz (6) HTN (hypertension): BP variable with SBP 120's-140's. No need for BP meds at this time. (7) DVT prophylaxis: Lovenox SQ Disposition: Home Repeat labs on 03/08/19 and 03/11/19 Follow up: PCP Harleen Gonzalez PA-C. Appt on 03/11/19 at 10:00AM. Hematology/Oncology Dr. Chavis Follow up Nephrology follow up in 2 weeks General surgery appt on 03/13/19 at 1:[address] Ruiz for port placement consultation Total Time Total Time Spent Total Time Spent (In Minutes): 40 Discharge Plan Discharge Items Patient Disposition: Home - Self-Care Reason For Visit: SYMPTOMATIC HYPERCALCEMIA Discharge Diagnosis: Elevated calcium level, Low magnesium level, Low phosphorus level Condition: Fair Discharge Goals: Diagnostic testing, Improve nutritional status and Therapeutic intervention Activity: Resume your previous activity Non-emergency contact: Primary Care Provider Call non-emergency contact if: your symptoms worsen and you have a fever Follow-up/Referrals: Harleen Gonzalez PA-C [Primary Care Provider] - 03/11/19 10:00 am Diet: Regular Addtl Provider Instructions: Drink plenty of fluids Avoid NSAID medications which are Iburprofen, Advil, Motrin, Aleve, Naprosyn, Naproxen DO NOT TAKE CALCIUM SUPPLEMENTS (CALTRATE is brand name) Avoid any Vitamin D supplement Avoid any diary product for now Your home potassium phosphate (K-Phos is brand name) Should be taken 1 TABLET BY MOUTH TWICE DAILY Get blood work done on 03/08/19 and 03/11/19. Follow up with PCP Harleen Gonzalez PA-C on 03/11/19 at 10:00AM Follow up with General surgeon - Dr Ruiz on 03/13/19 at 1:45 PM Follow up with Nephrology - Dr Valdes in 2 weeks Follow up with Oncology/Hematology - Dr Chavis Check BMP, magnesium and phosphate level on Monday and Monday Prescriptions: New magnesium oxide 400 mg (241.3 mg magnesium) Tablet 400 mg PO BID Qty: 60 RF: 0 Continued pyridoxine (vitamin B6) [Vitamin B-6] 100 mg Tablet 100 mg PO DAILY RF: 0 aspirin 81 mg Tablet,Delayed Release (Dr/Ec) 81 mg PO QAM RF: 0 Probiotic 3 billion cell Capsule 3,000 mmu cells PO QAM RF: 0 trazodone 50 mg tablet 50 mg PO HS PRN (Reason: Insomnia) RF: 0 ondansetron HCl [Zofran] 8 mg Tablet 8 mg PO TID PRN (Reason: Nausea) RF: 0 Changed K-Phos Original 500 mg tablet,soluble 1,000 mg PO BID Qty: 0 RF: 0 Discontinued Excedrin Extra Strength 250-250-65 mg Tablet 2 tab PO Q6H PRN (Reason: Pain) RF: 0 Caltrate 600 + D 600 mg (1,500 mg)-800 unit Tablet,Chewable 1 tab PO BIDM RF: 0 Stand-Alone Forms: [facility], [facility] Discharge Orders: Discharge Order (Routine); Ordered 03/06/19 Ordered By: Tai Abraham Admission Data Admit Date/Time: 03/04/19 13:54 Attending Provider: Tai Abraham Admit Provider: Roque Carter Primary Care Provider: Harleen Gonzalez Other Providers: Edgar Valdes Service: Telemetry Medical Other Interventions: Discharge Summary Assessment (RN) Last Done: 03/06/19 17:04 Pending Studies at Discharge: Yes (Vitamin D level, PTH related protein) DC Date/Time DO NOT enter until pt leaves facility: 03/06/19 18:00
[2019-03-06 16:41] LABS: BUN Creatinine Ratio 8.6 (10-20); Calcium 8.9 mg/dl (8.5-10.1); Est GFR (African American) 82.9; Est GFR (Non-African American) 71.5; Magnesium 1.8 mg/dl (1.8-2.4); Potassium 3.2 mmol/L (3.5-5.1)
[2019-03-06 16:47] LABS: Phosphorus 3.1 mg/dl (2.5-4.9)
[2019-03-06] MEDS ORDERED: POTASSIUM CHLORIDE 20 MEQ TABCR PO STA (17:32)
[2019-03-06] MEDS ORDERED: MAGNESIUM OXIDE 400 MG TAB PO SCH (21:00)
[2019-03-13 02:17] LABS: PTH Related Protein 17 pg/mL (14-27); Vitamin D3,1,25 79 pg/mL
== END 2019-03-06 18:00 | disposition home or self-care (01) | DRG 641 ==
LOC: ED 10:49 → 2W 13:54
DX: Z79.82 Long term (current) use of aspirin; C79.51 Secondary malignant neoplasm of bone; E83.52 Hypercalcemia; C50.912 Malignant neoplasm of unspecified site of left female breast; T39.395A Adverse effect of other nonsteroidal anti-inflammatory drugs [NSAID], initial encounter; E83.42 Hypomagnesemia; N17.9 Acute kidney failure, unspecified; Z79.899 Other long term (current) drug therapy; I12.9 Hypertensive chronic kidney disease with stage 1 through stage 4 chronic kidney disease, or unspecified chronic kidney disease; N18.3 Chronic kidney disease, stage 3 (moderate); E86.0 Dehydration; E83.39 Other disorders of phosphorus metabolism